=== PATIENT | female | born 1975 | race Caucasian/White ===

== ENCOUNTER 2016-09-28 14:20 | Emergency (ER) | payer MEDICAID ==
[~2016-09-28] VITALS: Ht 170.2 cm; Wt 96.0 kg
[~2016-09-28 14:20] MED LIST: ACET325T14 PO; ACET325T21 PO; ACID1GRA2 PO; AMIT25TA PO; Albuterol Sulfate NPPB; CIPR500T87 PO; DOCU-30 PO; DULO60CA7 PO; ENOX100S5 SQ; ENOX300V SQ; ENOX40SY4 SQ; ERTA1VIA IV; FLUC150T2 PO; FLUO40CA9 PO; GABA100C PO; GABA100C8 PO; GABA600T PO; GABA800T2 PO; GLUC1KIT IM; HEPA500024 IVBOLUS; HYDR-3138 PO; IBUP-1222 PO; IBUP200T48 PO; IBUP800T PO; INSU100C SC; INSU100C5 SQ-INSULIN; INSU100I13 SC; INSU100I13 SQ; INSU100I13 SQ-INSULIN; INSU100I28 SQ-INSULIN; INSU100V13 SC; INSU100V14 SUBD; INSU100V5 SQ-INSULIN; INSU100V8 SQ; LEUP7.5S IM; LISI5TAB7 PO; LORA2TAB99 PO; MAGN400T26 PO; METF850T2 PO; METO5TAB57 PO; METR500T PO; METRO PO; NICO1PAT10 TD; NITR100C6 PO; ONDA-39 IV; ONDA4TAB7 PO; ONDA8TAB12 PO; OXYC10TA6 PO; OXYC1TAB9 PO; OXYC5TAB3 PO; Oxycodone Hcl PO; PANT20TA3 PO; PENT100C2 PO; PHEN-418 PO; PHEN-494 PO; PHEN100T90 PO; PREN1TAB52 PO; PROMETHAZINE; QUET50TA5 PO; SUCR1TAB PO; SUCR1TAB26 PO; TRAM-28 PO; TRAZ300T2 PO; VANC1VIA3 PO; [UNRECOGNIZED DRUG - CODE] IV; [UNRECOGNIZED DRUG - CODE] IV; [UNRECOGNIZED DRUG - CODE] IV; [UNRECOGNIZED DRUG - CODE] PO; [UNRECOGNIZED DRUG - CODE] PO; [UNRECOGNIZED DRUG - OTHER]; novolog insulin pump SQ
[2016-09-28] MEDS ORDERED: SODIUM CHLORIDE 0.9% 1,000ML IVBOLUS ONE (15:30)
[2016-09-28] MEDS ORDERED: SODIUM CHLORIDE FLUSH 10ML SYR IVF ONE (15:30)
[2016-09-28] MEDS ORDERED: ONDANSETRON 2MG/ML, 2ML IVPush ONE (15:30)
[2016-09-28] MEDS ORDERED: KETOROLAC 30 MG/1 ML IM ONE (15:30)
[2016-09-28] MEDS ORDERED: KETOROLAC 30 MG/1 ML ONE (15:36)
[2016-09-28] MEDS ORDERED: ONDANSETRON 2MG/ML, 2ML ONE (15:37)
[2016-09-28 15:49] LABS: ASPARTATE AMINO TRANSFERASE 12 U/L (15-37); BLOOD UREA NITROGEN 13 mg/dL (7-18)
[2016-09-28] MEDS ORDERED: metroNIDAZOLE 500 MG TABLET ONE (16:40)
[2016-09-28] MEDS ORDERED: FLUCONAZOLE 100 MG TABLET PO ONE (17:00)
[2016-09-28] MEDS ORDERED: metroNIDAZOLE 500 MG TABLET PO ONE (17:00)
[2016-09-28 17:10] VITALS: BP 112/73
[2016-09-28] MEDS ORDERED: LISI10TA2 PO (17:20)
[2016-09-28] MEDS ORDERED: DULO60CA55 PO (17:20)
[2016-09-28] MEDS ORDERED: LORA2TAB99 PO (17:21)
[2016-09-28] MEDS ORDERED: ACETAMINOPHEN 325 MG TABLET ONE (17:25)
== END 2016-09-28 18:11 | disposition home or self-care (01) ==
LOC: ED 15:55
DX: N89.8 Other specified noninflammatory disorders of vagina (principal); E11.65 Type 2 diabetes mellitus with hyperglycemia; R30.0 Dysuria; I10 Essential (primary) hypertension; Z79.4 Long term (current) use of insulin; Z90.710 Acquired absence of both cervix and uterus; Z86.718 Personal history of other venous thrombosis and embolism
CPT/HCPCS: 36415; 76830; 80053; 81003; 82962; 84703; 85025; 87210; 87491; 87591; 87808; 96361; 96372; 96374; 99285; J1885; J2405; J7030

== ENCOUNTER 2016-10-07 08:22 | Inpatient (IN) | payer MEDICAID ==
[~2016-10-07] VITALS: Ht 170.2 cm; Wt 100.8 kg
[~2016-10-07 08:22] MED LIST changes: +DULO60CA55 PO; +GABA-826 PO; -GABA100C8 PO; +LISI10TA2 PO
[2016-10-07] MEDS ORDERED: SODIUM CHLORIDE 0.9% 1,000ML IVBOLUS ONE (09:00)
[2016-10-07] MEDS ORDERED: ONDANSETRON 2MG/ML, 2ML IVPush ONE (09:00)
[2016-10-07 09:16] LABS: PH, VENOUS 7.191 pH (7.320-7.420)
[2016-10-07 09:27] LABS: ASPARTATE AMINO TRANSFERASE 9 U/L (15-37); BLOOD UREA NITROGEN 10 mg/dL (7-18)
[2016-10-07] MEDS ORDERED: morphine SULFATE 10 MG/ML, 1ML ONE (09:53)
[2016-10-07] MEDS ORDERED: ONDANSETRON 2MG/ML, 2ML ONE (09:54)
[2016-10-07] MEDS ORDERED: MORPHINE SULFATE 4 MG/ML, 1ML IVPush PRN (10:00)
[2016-10-07] MEDS ORDERED: INSULIN REGULAR 100 UNITS/ML, 3ML VIAL IVPush ONE (10:00)
[2016-10-07] MEDS: SODIUM CHLORIDE 0.9% 1,000 ML IV SCH ×2 (10:25→17:05)
[2016-10-07] MEDS: FAMOTIDINE 20 MG/2 ML IVPush SCH ×2 (10:30→21:14)
[2016-10-07] MEDS ORDERED: ACETAMINOPHEN 325 MG TABLET PO PRN (10:30)
[2016-10-07] MEDS ORDERED: BISACODYL 10 MG SUPP PR PRN (10:30)
[2016-10-07] MEDS ORDERED: ONDANSETRON 2MG/ML, 2ML IVPush PRN (10:30)
[2016-10-07] MEDS ORDERED: POLYETHYLENE GLYCOL 17 GM PACKET PO PRN (10:30)
[2016-10-07] MEDS ORDERED: DOCUSATE 100 MG CAPSULE PO PRN (10:30)
[2016-10-07] MEDS ORDERED: PANTOPRAZOLE 20MG TABLET PO SCH (11:00)
[2016-10-07] MEDS: SUCRALFATE 1 GM TABLET PO SCH ×3 (11:00→21:15)
[2016-10-07] MEDS: METOCLOPRAMIDE 10MG TABLET PO SCH ×2 (11:00→15:58)
[2016-10-07] MEDS ORDERED: LORazepam 1MG TABLET ONE (11:21)
[2016-10-07] MEDS ORDERED: OXYcodone IR 5MG TABLET ONE (11:22)
[2016-10-07] MEDS: OXYcodone IR 5MG TABLET PO PRN ×2 (11:32→19:57)
[2016-10-07] MEDS: REGULAR INSULIN 62.5 UNITS in SODIUM CHLORIDE 0.9% 249.375 ML IV PRN (11:41)
[2016-10-07 14:10] LABS: BLOOD UREA NITROGEN 9 mg/dL (7-18)
[2016-10-07 15:31] VITALS: BP 113/76
[2016-10-07 18:21] LABS: BLOOD UREA NITROGEN 9 mg/dL (7-18)
[2016-10-07 20:56] LABS: BLOOD UREA NITROGEN 10 mg/dL (7-18)
[2016-10-07] MEDS: GABAPENTIN 400 MG CAPSULE PO SCH (21:15)
[2016-10-07] MEDS: LISINOPRIL 10 MG TABLET PO SCH (21:16)
[2016-10-07] MEDS: QUETIAPINE 100MG TABLET PO SCH (21:18)
[2016-10-07] MEDS: AMITRIPTYLINE 25 MG TABLET PO SCH (21:18)
[2016-10-07] MEDS: TRAZODONE 150MG TABLET PO SCH (21:19)
[2016-10-07] MEDS: DULOXETINE 30 MG CAPSULE.DR PO SCH (21:20)
[2016-10-07] MEDS: ENOXAPARIN 100 MG/ML SQ SCH (21:21)
[2016-10-07] MEDS: D5%-0.45% NACL 1,000 ML IV SCH (22:53)
[2016-10-08 01:30] LABS: BLOOD UREA NITROGEN 8 mg/dL (7-18)
[2016-10-08 04:33] LABS: BLOOD UREA NITROGEN 7 mg/dL (7-18)
[2016-10-08] MEDS: REGULAR INSULIN 62.5 UNITS in SODIUM CHLORIDE 0.9% 249.375 ML IV PRN (06:55)
[2016-10-08] MEDS: D5%-0.45% NACL 1,000 ML IV SCH (08:00)
[2016-10-08] MEDS ORDERED: POTASSIUM CHLORIDE 20 MEQ TAB.ER.PRT PO ONE (08:00)
[2016-10-08] MEDS: FAMOTIDINE 20 MG/2 ML IVPush SCH (08:01)
[2016-10-08] MEDS: METOCLOPRAMIDE 10MG TABLET PO SCH ×3 (08:02→17:19)
[2016-10-08] MEDS: SUCRALFATE 1 GM TABLET PO SCH ×4 (08:02→21:54)
[2016-10-08] MEDS: ENOXAPARIN 100 MG/ML SQ SCH ×2 (08:03→21:53)
[2016-10-08] MEDS: GABAPENTIN 400 MG CAPSULE PO SCH ×3 (08:03→21:53)
[2016-10-08] MEDS: OXYcodone IR 5MG TABLET PO PRN ×2 (08:43→21:55)
[2016-10-08 09:03] LABS: BLOOD UREA NITROGEN 6 mg/dL (7-18)
[2016-10-08] MEDS: INSULIN DETEMIR 100 UNITS/ML, PEN SQ-INSULIN SCH ×2 (11:10→21:52)
[2016-10-08] MEDS: INSULIN ASPART 100 UNITS/ML, PEN SQ-INSULIN SCH ×3 (12:31→21:53)
[2016-10-08 18:01] VITALS: BP 128/89
[2016-10-08 20:29] VITALS: BP 131/86
[2016-10-08] MEDS: QUETIAPINE 100MG TABLET PO SCH (21:53)
[2016-10-08] MEDS: TRAZODONE 150MG TABLET PO SCH (21:54)
[2016-10-08] MEDS: DULOXETINE 30 MG CAPSULE.DR PO SCH (21:54)
[2016-10-08] MEDS: LISINOPRIL 10 MG TABLET PO SCH (21:54)
[2016-10-08] MEDS: AMITRIPTYLINE 25 MG TABLET PO SCH (21:54)
[2016-10-09 03:27] VITALS: BP 105/72
[2016-10-09 06:15] LABS: BLOOD UREA NITROGEN 9 mg/dL (7-18)
[2016-10-09 06:55] VITALS: BP 111/74
[2016-10-09] MEDS: INSULIN ASPART 100 UNITS/ML, PEN SQ-INSULIN SCH ×4 (08:42→21:20)
[2016-10-09] MEDS: GABAPENTIN 400 MG CAPSULE PO SCH ×3 (08:43→21:18)
[2016-10-09] MEDS: INSULIN DETEMIR 100 UNITS/ML, PEN SQ-INSULIN SCH ×2 (08:43→21:19)
[2016-10-09] MEDS: SUCRALFATE 1 GM TABLET PO SCH ×4 (08:43→21:19)
[2016-10-09] MEDS: ENOXAPARIN 100 MG/ML SQ SCH ×2 (08:43→21:18)
[2016-10-09] MEDS: OXYcodone IR 5MG TABLET PO PRN ×3 (08:43→21:18)
[2016-10-09] MEDS: METOCLOPRAMIDE 10MG TABLET PO SCH ×3 (08:44→15:27)
[2016-10-09] MEDS ORDERED: LORazepam 1MG TABLET ONE (11:23)
[2016-10-09 13:18] VITALS: BP 116/82
[2016-10-09 18:20] VITALS: BP 138/98
[2016-10-09] MEDS: QUETIAPINE 100MG TABLET PO SCH (21:18)
[2016-10-09] MEDS: AMITRIPTYLINE 25 MG TABLET PO SCH (21:18)
[2016-10-09] MEDS: LISINOPRIL 10 MG TABLET PO SCH (21:18)
[2016-10-09] MEDS: TRAZODONE 150MG TABLET PO SCH (21:19)
[2016-10-09] MEDS: DULOXETINE 30 MG CAPSULE.DR PO SCH (21:19)
[2016-10-10 01:00] VITALS: BP 107/75
[2016-10-10 07:43] VITALS: BP 112/74
[2016-10-10] MEDS: INSULIN ASPART 100 UNITS/ML, PEN SQ-INSULIN SCH ×4 (07:57→22:27)
[2016-10-10] MEDS: SUCRALFATE 1 GM TABLET PO SCH ×4 (07:57→22:25)
[2016-10-10] MEDS: ENOXAPARIN 100 MG/ML SQ SCH ×2 (09:37→22:25)
[2016-10-10] MEDS: METOCLOPRAMIDE 10MG TABLET PO SCH ×3 (09:37→16:46)
[2016-10-10] MEDS: INSULIN DETEMIR 100 UNITS/ML, PEN SQ-INSULIN SCH ×3 (09:37→22:27)
[2016-10-10] MEDS: GABAPENTIN 400 MG CAPSULE PO SCH ×3 (09:37→22:25)
[2016-10-10] MEDS: OXYcodone IR 5MG TABLET PO PRN ×2 (09:41→22:26)
[2016-10-10] MEDS: FLUCONAZOLE 200 MG TABLET PO SCH (12:12)
[2016-10-10 14:24] VITALS: BP 120/85
[2016-10-10 18:37] VITALS: BP 116/83
[2016-10-10] MEDS: DULOXETINE 30 MG CAPSULE.DR PO SCH (22:25)
[2016-10-10] MEDS: AMITRIPTYLINE 25 MG TABLET PO SCH (22:25)
[2016-10-10] MEDS: QUETIAPINE 100MG TABLET PO SCH (22:26)
[2016-10-10] MEDS: TRAZODONE 150MG TABLET PO SCH (22:26)
[2016-10-10] MEDS: LISINOPRIL 10 MG TABLET PO SCH (22:26)
[2016-10-11 00:52] VITALS: BP 120/83
[2016-10-11] MEDS: INSULIN ASPART 100 UNITS/ML, PEN SQ-INSULIN SCH ×2 (07:00→11:28)
[2016-10-11 07:27] VITALS: BP 125/85
[2016-10-11] MEDS: SUCRALFATE 1 GM TABLET PO SCH ×2 (07:50→11:28)
[2016-10-11] MEDS: METOCLOPRAMIDE 10MG TABLET PO SCH ×2 (07:51→11:28)
[2016-10-11] MEDS: FLUCONAZOLE 200 MG TABLET PO SCH (09:51)
[2016-10-11] MEDS: GABAPENTIN 400 MG CAPSULE PO SCH (09:52)
[2016-10-11] MEDS: ENOXAPARIN 100 MG/ML SQ SCH (09:53)
[2016-10-11] MEDS ORDERED: FLUC200T PO (10:06)
[2016-10-11] MEDS: INSULIN DETEMIR 100 UNITS/ML, PEN SQ-INSULIN SCH (11:29)
== END 2016-10-11 11:57 | disposition home or self-care (01) | DRG 639 ==
LOC: ED 09:26 → EDIP 09:50 → ICU 14:26 → 3NE 10-08 17:41 → DCLOUNGE 10-11 11:35
PROVIDERS: ADMIT Hospitalist; ATTEND Hospitalist
DX: E10.10 Type 1 diabetes mellitus with ketoacidosis without coma (principal); E10.40 Type 1 diabetes mellitus with diabetic neuropathy, unspecified; G89.29 Other chronic pain; F41.1 Generalized anxiety disorder; F32.9 Major depressive disorder, single episode, unspecified; E10.43 Type 1 diabetes mellitus with diabetic autonomic (poly)neuropathy; K31.84 Gastroparesis; B37.3 Candidiasis of vulva and vagina; F43.10 Post-traumatic stress disorder, unspecified; F12.90 Cannabis use, unspecified, uncomplicated; Z90.710 Acquired absence of both cervix and uterus; Z90.49 Acquired absence of other specified parts of digestive tract; Z87.891 Personal history of nicotine dependence; Z88.1 Allergy status to other antibiotic agents; Z88.0 Allergy status to penicillin; Z88.2 Allergy status to sulfonamides; Z88.8 Allergy status to other drugs, medicaments and biological substances; Z86.711 Personal history of pulmonary embolism; Z86.718 Personal history of other venous thrombosis and embolism; Z82.5 Family history of asthma and other chronic lower respiratory diseases; Z82.49 Family history of ischemic heart disease and other diseases of the circulatory system; Z83.3 Family history of diabetes mellitus; Z79.4 Long term (current) use of insulin; Z79.891 Long term (current) use of opiate analgesic; Z79.01 Long term (current) use of anticoagulants
CPT/HCPCS: 36415; 71010; 80048; 80053; 81003; 82010; 82803; 82962; 83036; 83735; 84703; 85025; 87081; 93005; 99285; J1650; J1815; J2405; J7030; J7050; S0028

== ENCOUNTER 2016-10-18 03:57 | Inpatient (IN) | payer MEDICAID ==
[~2016-10-18] VITALS: Ht 170.2 cm; Wt 92.1 kg
[~2016-10-18 03:57] MED LIST changes: +FLUC200T PO
[2016-10-18] MEDS ORDERED: ONDANSETRON 2MG/ML, 2ML IVPush ONE (04:30)
[2016-10-18] MEDS: SODIUM CHLORIDE 0.9% 1,000ML IVBOLUS ONE ×2 (04:30→04:36)
[2016-10-18] MEDS ORDERED: REGULAR INSULIN 62.5 UNITS in SODIUM CHLORIDE 0.9% 249.375 ML IV PRN ×2 (04:31→08:00)
[2016-10-18] MEDS ORDERED: PROMETHAZINE 25 MG/ML, 1ML ONE (04:34)
[2016-10-18] MEDS ORDERED: ONDANSETRON 2MG/ML, 2ML ONE (04:42)
[2016-10-18] MEDS ORDERED: PROMETHAZINE 25 MG/ML, 1ML IM ONE (05:00)
[2016-10-18] MEDS ORDERED: SODIUM CHLORIDE 0.9% 1,000ML IVBOLUS ONE (05:00)
[2016-10-18 05:50] LABS: PATH.CAST-FLAG NOT PRESENT; SPERM-FLAG NOT PRESENT; SRC-FLAG NOT PRESENT; XTAL-FLAG NOT PRESENT; YLC-FLAG NOT PRESENT
[2016-10-18] MEDS ORDERED: FAMOTIDINE 20 MG/2 ML ONE (05:55)
[2016-10-18] MEDS ORDERED: MORPHINE SULFATE 4 MG/ML, 1ML ONE (05:55)
[2016-10-18] MEDS ORDERED: FAMOTIDINE 20 MG/2 ML IVPush ONE (06:00)
[2016-10-18] MEDS ORDERED: MORPHINE SULFATE 4 MG/ML, 1ML IVPush ONE (06:00)
[2016-10-18 06:03] LABS: ABG COLLECTION SITE NOT DOCUMENTED
[2016-10-18 06:09] LABS: BLOOD UREA NITROGEN 14 mg/dL (7-18)
[2016-10-18 06:13] LABS: ASPARTATE AMINO TRANSFERASE 11 U/L (15-37)
[2016-10-18 06:25] LABS: IS PT STATUS REG ER OR PRE ER? YES
[2016-10-18] MEDS ORDERED: PIPERACILLIN/TAZO/PMX 3.375GM 50 ML IVPB ONE (06:30)
[2016-10-18 06:37] LABS: DIFF TOTAL CELLS COUNTED 100 CELL DIFF
[2016-10-18 06:40] LABS: VERIFY COUNTS? YES
[2016-10-18] MEDS ORDERED: PIPERACILLIN/TAZO/PMX 3.375GM 50 ML ONE (07:18)
[2016-10-18] MEDS ORDERED: SODIUM CHLORIDE 0.9% 1,000 ML IV SCH (07:58)
[2016-10-18] MEDS ORDERED: BISACODYL 10 MG SUPP PR PRN (08:00)
[2016-10-18] MEDS ORDERED: [UNRECOGNIZED DRUG - REMARK] MC SCH (08:30)
[2016-10-18] MEDS: FAMOTIDINE 20 MG TABLET PO SCH ×2 (09:00→20:11)
[2016-10-18] MEDS: GABAPENTIN 400 MG CAPSULE PO SCH ×3 (09:00→20:11)
[2016-10-18] MEDS: OXYcodone IR 5MG TABLET PO PRN (09:10)
[2016-10-18] MEDS ORDERED: MAGNESIUM SULFATE PMX 4GM/100M 100 ML IV ONE (09:30)
[2016-10-18] MEDS ORDERED: D5%-0.45% NACL 1,000 ML IV SCH (10:00)
[2016-10-18 10:12] LABS: BLOOD UREA NITROGEN 13 mg/dL (7-18)
[2016-10-18] MEDS: METOCLOPRAMIDE 10MG TABLET PO SCH ×2 (11:27→16:23)
[2016-10-18] MEDS: ENOXAPARIN 100 MG/ML SQ SCH ×2 (11:28→20:10)
[2016-10-18] MEDS: FLUCONAZOLE 200 MG TABLET PO SCH (11:33)
[2016-10-18] MEDS: ONDANSETRON 2MG/ML, 2ML IVPush PRN (13:10)
[2016-10-18 13:30] LABS: BLOOD UREA NITROGEN 9 mg/dL (7-18)
[2016-10-18] MEDS: PIPERACILLIN/TAZO/PMX 3.375GM 50 ML IV SCH ×2 (14:10→19:17)
[2016-10-18 17:12] LABS: BLOOD UREA NITROGEN 6 mg/dL (7-18)
[2016-10-18] MEDS: D5%-0.45% NACL 1,000 ML IV SCH (18:14)
[2016-10-18] MEDS ORDERED: POTASSIUM CHLORIDE 20 MEQ TAB.ER.PRT PO ONE (18:30)
[2016-10-18] MEDS: AMITRIPTYLINE 25 MG TABLET PO SCH (20:10)
[2016-10-18] MEDS: QUETIAPINE 25MG TABLET PO SCH (20:11)
[2016-10-18] MEDS: TRAZODONE 150MG TABLET PO SCH ×2 (20:11→21:00)
[2016-10-18] MEDS: DULOXETINE 30 MG CAPSULE.DR PO SCH (20:12)
[2016-10-18 21:14] LABS: BLOOD UREA NITROGEN 6 mg/dL (7-18)
[2016-10-19] MEDS: PIPERACILLIN/TAZO/PMX 3.375GM 50 ML IV SCH ×3 (01:09→12:14)
[2016-10-19] MEDS: D5%-0.45% NACL 1,000 ML IV SCH (01:10)
[2016-10-19 01:13] LABS: BLOOD UREA NITROGEN 4 mg/dL (7-18)
[2016-10-19] MEDS ORDERED: POTASSIUM CHLORIDE 20 MEQ PACKET PO ONE (01:30)
[2016-10-19] MEDS ORDERED: INSULIN DETEMIR 100 UNITS/ML, PEN ONE (01:45)
[2016-10-19] MEDS: SODIUM CHLORIDE 0.9% 1,000 ML IV SCH ×2 (01:51→12:14)
[2016-10-19] MEDS ORDERED: INSULIN DETEMIR 100 UNITS/ML, PEN SQ-INSULIN ONE (02:00)
[2016-10-19 04:48] LABS: BLOOD UREA NITROGEN 4 mg/dL (7-18)
[2016-10-19 04:51] LABS: ASPARTATE AMINO TRANSFERASE 87 U/L (15-37)
[2016-10-19] MEDS: METOCLOPRAMIDE 10MG TABLET PO SCH ×3 (07:55→17:26)
[2016-10-19] MEDS: INSULIN REGULAR 100 UNITS/ML, 3ML VIAL SQ-INSULIN SCH ×4 (07:56→22:06)
[2016-10-19] MEDS: FLUCONAZOLE 200 MG TABLET PO SCH (08:07)
[2016-10-19] MEDS: OXYcodone IR 5MG TABLET PO PRN ×3 (08:07→22:06)
[2016-10-19] MEDS: ENOXAPARIN 100 MG/ML SQ SCH ×2 (08:07→22:06)
[2016-10-19] MEDS: GABAPENTIN 400 MG CAPSULE PO SCH ×3 (08:07→22:06)
[2016-10-19] MEDS: INSULIN DETEMIR 100 UNITS/ML, PEN SQ-INSULIN SCH ×2 (10:25→22:05)
[2016-10-19] MEDS: ONDANSETRON 2MG/ML, 2ML IVPush PRN ×2 (12:14→22:14)
[2016-10-19 14:05] VITALS: BP 128/85
[2016-10-19 19:37] VITALS: BP 140/66
[2016-10-19] MEDS: QUETIAPINE 25MG TABLET PO SCH (22:06)
[2016-10-19] MEDS: AMITRIPTYLINE 25 MG TABLET PO SCH (22:06)
[2016-10-19] MEDS: TRAZODONE 150MG TABLET PO SCH (22:07)
[2016-10-19] MEDS: DULOXETINE 30 MG CAPSULE.DR PO SCH (22:07)
[2016-10-20] MEDS: SODIUM CHLORIDE 0.9% 1,000 ML IV SCH ×3 (00:43→21:24)
[2016-10-20 04:36] VITALS: BP 119/66
[2016-10-20 05:16] LABS: BLOOD UREA NITROGEN 6 mg/dL (7-18)
[2016-10-20 07:18] VITALS: BP 123/81
[2016-10-20] MEDS ORDERED: POTASSIUM CHLORIDE 20 MEQ TAB.ER.PRT PO ONE (07:30)
[2016-10-20] MEDS: INSULIN REGULAR 100 UNITS/ML, 3ML VIAL SQ-INSULIN SCH ×4 (07:50→21:26)
[2016-10-20] MEDS: METOCLOPRAMIDE 10MG TABLET PO SCH ×3 (07:52→15:55)
[2016-10-20] MEDS: GABAPENTIN 400 MG CAPSULE PO SCH ×3 (09:35→21:25)
[2016-10-20] MEDS: FLUCONAZOLE 200 MG TABLET PO SCH (09:35)
[2016-10-20] MEDS: OXYcodone IR 5MG TABLET PO PRN ×2 (09:36→21:27)
[2016-10-20] MEDS: ENOXAPARIN 100 MG/ML SQ SCH ×2 (09:36→21:25)
[2016-10-20] MEDS: INSULIN DETEMIR 100 UNITS/ML, PEN SQ-INSULIN SCH ×2 (09:36→21:26)
[2016-10-20] MEDS: DOCUSATE 100 MG CAPSULE PO PRN (09:37)
[2016-10-20] MEDS ORDERED: [UNRECOGNIZED DRUG - REMARK] MC ONE (10:30)
[2016-10-20 12:57] VITALS: BP 124/84
[2016-10-20 20:59] VITALS: BP 121/83
[2016-10-20] MEDS: TRAZODONE 150MG TABLET PO SCH (21:25)
[2016-10-20] MEDS: DULOXETINE 30 MG CAPSULE.DR PO SCH (21:25)
[2016-10-20] MEDS: QUETIAPINE 25MG TABLET PO SCH (21:25)
[2016-10-20] MEDS: AMITRIPTYLINE 25 MG TABLET PO SCH (21:25)
[2016-10-21] MEDS: SODIUM CHLORIDE 0.9% 1,000 ML IV SCH ×2 (06:26→17:04)
[2016-10-21 07:22] VITALS: BP 131/88
[2016-10-21] MEDS: METOCLOPRAMIDE 10MG TABLET PO SCH ×3 (08:11→16:00)
[2016-10-21] MEDS: INSULIN REGULAR 100 UNITS/ML, 3ML VIAL SQ-INSULIN SCH ×4 (08:11→21:44)
[2016-10-21] MEDS: INSULIN DETEMIR 100 UNITS/ML, PEN SQ-INSULIN SCH ×2 (08:12→21:45)
[2016-10-21] MEDS: GABAPENTIN 400 MG CAPSULE PO SCH ×3 (08:12→21:43)
[2016-10-21] MEDS: FLUCONAZOLE 200 MG TABLET PO SCH (08:12)
[2016-10-21] MEDS: ENOXAPARIN 100 MG/ML SQ SCH ×2 (08:12→21:43)
[2016-10-21] MEDS: OXYcodone IR 5MG TABLET PO PRN ×2 (08:13→21:45)
[2016-10-21] MEDS: POLYETHYLENE GLYCOL 17 GM PACKET PO PRN (08:21)
[2016-10-21 10:36] LABS: BLOOD UREA NITROGEN 6 mg/dL (7-18)
[2016-10-21 12:35] VITALS: BP 137/96
[2016-10-21] MEDS: ONDANSETRON 2MG/ML, 2ML IVPush PRN (14:46)
[2016-10-21 19:27] VITALS: BP 123/84
[2016-10-21] MEDS: DULOXETINE 30 MG CAPSULE.DR PO SCH (21:42)
[2016-10-21] MEDS: TRAZODONE 150MG TABLET PO SCH (21:42)
[2016-10-21] MEDS: AMITRIPTYLINE 25 MG TABLET PO SCH (21:42)
[2016-10-21] MEDS: QUETIAPINE 25MG TABLET PO SCH (21:43)
[2016-10-22 01:54] VITALS: BP 126/91
[2016-10-22] MEDS ORDERED: LORazepam 1MG TABLET ONE (02:13)
[2016-10-22] MEDS: SODIUM CHLORIDE 0.9% 1,000 ML IV SCH ×2 (02:14→12:18)
[2016-10-22] MEDS: INSULIN REGULAR 100 UNITS/ML, 3ML VIAL SQ-INSULIN SCH ×4 (07:00→22:20)
[2016-10-22 07:15] VITALS: BP 120/86
[2016-10-22] MEDS: INSULIN DETEMIR 100 UNITS/ML, PEN SQ-INSULIN SCH (08:40)
[2016-10-22] MEDS: ENOXAPARIN 100 MG/ML SQ SCH ×2 (08:40→21:15)
[2016-10-22] MEDS: GABAPENTIN 400 MG CAPSULE PO SCH ×3 (08:40→21:13)
[2016-10-22] MEDS: METOCLOPRAMIDE 10MG TABLET PO SCH ×4 (08:41→21:15)
[2016-10-22] MEDS: FLUCONAZOLE 200 MG TABLET PO SCH (08:41)
[2016-10-22] MEDS: OXYcodone IR 5MG TABLET PO PRN ×3 (09:28→22:19)
[2016-10-22] MEDS: DOCUSATE 100 MG CAPSULE PO PRN (09:28)
[2016-10-22] MEDS: POLYETHYLENE GLYCOL 17 GM PACKET PO PRN (09:28)
[2016-10-22 14:50] VITALS: BP 120/84
[2016-10-22] MEDS ORDERED: INSULIN DETEMIR 100 UNITS/ML, PEN SQ-INSULIN ONE (17:00)
[2016-10-22] MEDS ORDERED: LORazepam 0.5MG TABLET PO PRN (17:00)
[2016-10-22 19:30] VITALS: BP 130/86
[2016-10-22] MEDS ORDERED: INSULIN DETEMIR 100 UNITS/ML, PEN SQ-INSULIN SCH ×2 (21:00)
[2016-10-22] MEDS: TRAZODONE 150MG TABLET PO SCH (21:14)
[2016-10-22] MEDS: QUETIAPINE 25MG TABLET PO SCH (21:14)
[2016-10-22] MEDS: DULOXETINE 30 MG CAPSULE.DR PO SCH (21:14)
[2016-10-22] MEDS: SUCRALFATE 1 GM TABLET PO SCH (21:14)
[2016-10-22] MEDS: AMITRIPTYLINE 25 MG TABLET PO SCH (21:14)
[2016-10-22] MEDS: LISINOPRIL 10 MG TABLET PO SCH (21:14)
[2016-10-23 01:13] VITALS: BP 125/85
[2016-10-23 05:53] LABS: ASPARTATE AMINO TRANSFERASE 18 U/L (15-37); BLOOD UREA NITROGEN 12 mg/dL (7-18)
[2016-10-23] MEDS: INSULIN REGULAR 100 UNITS/ML, 3ML VIAL SQ-INSULIN SCH ×4 (07:00→22:48)
[2016-10-23] MEDS: METOCLOPRAMIDE 10MG TABLET PO SCH ×5 (07:00→21:56)
[2016-10-23 07:18] VITALS: BP 127/87
[2016-10-23] MEDS ORDERED: INSULIN DETEMIR 100 UNITS/ML, PEN SQ-INSULIN SCH ×2 (08:00→21:00)
[2016-10-23] MEDS: ENOXAPARIN 100 MG/ML SQ SCH ×2 (08:19→21:54)
[2016-10-23] MEDS: SUCRALFATE 1 GM TABLET PO SCH ×4 (08:19→21:56)
[2016-10-23] MEDS: OXYcodone IR 5MG TABLET PO PRN ×2 (08:19→17:03)
[2016-10-23] MEDS: GABAPENTIN 400 MG CAPSULE PO SCH ×3 (08:19→21:56)
[2016-10-23] MEDS: LORazepam 1MG TABLET PO PRN ×2 (10:51→18:42)
[2016-10-23 12:17] VITALS: BP 122/85
[2016-10-23] MEDS ORDERED: INSULIN DETEMIR 100 UNITS/ML, PEN SQ-INSULIN ONE (13:00)
[2016-10-23 19:21] VITALS: BP 115/81
[2016-10-23] MEDS: QUETIAPINE 25MG TABLET PO SCH (21:55)
[2016-10-23] MEDS: LISINOPRIL 10 MG TABLET PO SCH (21:55)
[2016-10-23] MEDS: TRAZODONE 150MG TABLET PO SCH (21:55)
[2016-10-23] MEDS: DULOXETINE 30 MG CAPSULE.DR PO SCH (21:56)
[2016-10-23] MEDS: AMITRIPTYLINE 25 MG TABLET PO SCH (21:56)
[2016-10-24 02:04] VITALS: BP 115/77
[2016-10-24 06:16] LABS: BLOOD UREA NITROGEN 16 mg/dL (7-18)
[2016-10-24] MEDS ORDERED: INSULIN DETEMIR 100 UNITS/ML, PEN SQ-INSULIN SCH (08:00)
[2016-10-24] MEDS: INSULIN REGULAR 100 UNITS/ML, 3ML VIAL SQ-INSULIN SCH ×3 (08:22→16:14)
[2016-10-24] MEDS: GABAPENTIN 400 MG CAPSULE PO SCH ×2 (08:22→16:12)
[2016-10-24] MEDS: ENOXAPARIN 100 MG/ML SQ SCH (08:22)
[2016-10-24] MEDS: OXYcodone IR 5MG TABLET PO PRN (08:23)
[2016-10-24] MEDS: METOCLOPRAMIDE 10MG TABLET PO SCH ×3 (08:23→16:12)
[2016-10-24] MEDS: SUCRALFATE 1 GM TABLET PO SCH ×3 (08:23→16:12)
[2016-10-24 08:40] VITALS: BP 132/87
[2016-10-24] MEDS: LORazepam 1MG TABLET PO PRN (11:08)
[2016-10-24] MEDS ORDERED: LISI5TAB7 PO (12:55)
[2016-10-24] MEDS ORDERED: METO10TA82 PO (12:55)
[2016-10-24] MEDS ORDERED: PENT100C2 PO (12:56)
[2016-10-24] MEDS ORDERED: GABA600T2 PO (12:58)
[2016-10-24] MEDS ORDERED: PANT20TA3 PO (12:59)
[2016-10-24] MEDS ORDERED: QUET50TA5 PO (12:59)
[2016-10-24 13:58] VITALS: BP 124/86
[2016-10-24] MEDS ORDERED: GABA-827 PO (17:34)
[2016-10-24] MEDS ORDERED: DULO30CA2 PO (17:34)
[2016-10-24] MEDS ORDERED: LISI-167 PO (17:34)
== END 2016-10-24 18:45 | disposition home or self-care (01) | DRG 638 ==
LOC: ED 06:08 → EDIP 06:09 → ED 06:17 → CCU 07:53 → 3NE 10-19 10:44
PROVIDERS: ADMIT Hospitalist; ATTEND Hospitalist
DX: E10.10 Type 1 diabetes mellitus with ketoacidosis without coma (principal); E87.1 Hypo-osmolality and hyponatremia; B37.49 Other urogenital candidiasis; I10 Essential (primary) hypertension; F41.9 Anxiety disorder, unspecified; F32.9 Major depressive disorder, single episode, unspecified; F43.10 Post-traumatic stress disorder, unspecified; E10.43 Type 1 diabetes mellitus with diabetic autonomic (poly)neuropathy; K31.84 Gastroparesis; E83.42 Hypomagnesemia; E86.0 Dehydration; G89.29 Other chronic pain; K21.9 Gastro-esophageal reflux disease without esophagitis; Z87.891 Personal history of nicotine dependence; Z90.710 Acquired absence of both cervix and uterus; Z88.1 Allergy status to other antibiotic agents; Z88.2 Allergy status to sulfonamides; Z88.8 Allergy status to other drugs, medicaments and biological substances; Z86.718 Personal history of other venous thrombosis and embolism; Z86.711 Personal history of pulmonary embolism; Z79.891 Long term (current) use of opiate analgesic
CPT/HCPCS: 36415; 36600; 71010; 80048; 80053; 81001; 82010; 82040; 82803; 82962; 83690; 83735; 84100; 84484; 85025; 87040; 87081; 93005; 96365; 96366; 96372; 96375; J1650; J2405; J2543; J2550; J3475; J7030; S0028

== ENCOUNTER 2016-11-21 12:13 | Emergency (ER) | payer MEDICAID ==
[~2016-11-21] VITALS: Ht 170.2 cm; Wt 96.5 kg
[~2016-11-21 12:13] MED LIST changes: +DULO30CA2 PO; +GABA-827 PO; +GABA600T2 PO; +LISI-167 PO; +METO10TA82 PO; -[UNRECOGNIZED DRUG - OTHER]; +[UNRECOGNIZED DRUG - OTHER] SQ
[2016-11-21] MEDS ORDERED: SODIUM CHLORIDE 0.9% 1,000ML IVBOLUS ONE ×2 (12:30→13:30)
[2016-11-21 12:59] LABS: PH, VENOUS 7.417 pH (7.320-7.420)
[2016-11-21 13:11] LABS: ASPARTATE AMINO TRANSFERASE 7 U/L (15-37); BLOOD UREA NITROGEN 14 mg/dL (7-18)
[2016-11-21] MEDS ORDERED: AMIT25TA PO (13:16)
[2016-11-21] MEDS ORDERED: DULO60CA7 PO (13:16)
[2016-11-21] MEDS ORDERED: MORPHINE SULFATE 4 MG/ML, 1ML IVPush PRN (13:30)
[2016-11-21] MEDS ORDERED: ONDANSETRON 2MG/ML, 2ML IVPush ONE (13:30)
[2016-11-21] MEDS ORDERED: ONDANSETRON 2MG/ML, 2ML ONE (13:45)
[2016-11-21] MEDS ORDERED: MORPHINE SULFATE 4 MG/ML, 1ML ONE (13:45)
[2016-11-21] MEDS ORDERED: ONDANSETRON ODT 8 MG ONE (14:51)
[2016-11-21] MEDS ORDERED: HYDROmorphone 1 MG/ML, 1ML ONE (14:51)
[2016-11-21] MEDS ORDERED: HYDROmorphone 1 MG/ML, 1ML IM ONE (15:00)
[2016-11-21] MEDS ORDERED: ONDANSETRON ODT 4 MG PO PRN (15:00)
[2016-11-21 15:10] VITALS: BP 129/83
== END 2016-11-21 15:14 | disposition home or self-care (01) ==
LOC: ED 13:29
DX: E10.65 Type 1 diabetes mellitus with hyperglycemia (principal); K29.00 Acute gastritis without bleeding; G89.29 Other chronic pain; Z87.891 Personal history of nicotine dependence
CPT/HCPCS: 36415; 80053; 81003; 82010; 82803; 82962; 83690; 85025; 96372; 99284; J1170; Q0162

== ENCOUNTER 2016-11-29 05:11 | Inpatient (IN) | payer BC, MEDICAID ==
[~2016-11-29] VITALS: Ht 170.2 cm; Wt 91.3 kg
[2016-11-29] MEDS ORDERED: SODIUM CHLORIDE 0.9% 1,000 ML IV ONE (05:32)
[2016-11-29] MEDS ORDERED: ONDANSETRON 2MG/ML, 2ML ONE ×2 (05:34→07:43)
[2016-11-29] MEDS ORDERED: FAMOTIDINE 20 MG/2 ML ONE (05:35)
[2016-11-29] MEDS ORDERED: METOCLOPRAMIDE 5 MG/ML, 2ML ONE (05:41)
[2016-11-29] MEDS ORDERED: INSULIN SINGLE DOSE, ER SQ-INSULIN ONE (05:41)
[2016-11-29] MEDS ORDERED: SODIUM CHLORIDE FLUSH 10ML SYR IVF ONE (06:00)
[2016-11-29] MEDS ORDERED: INSULIN REGULAR 100 UNITS/ML, 3ML VIAL IVPush ONE (06:00)
[2016-11-29] MEDS ORDERED: SODIUM CHLORIDE 0.9% 1,000ML IVBOLUS ONE (06:00)
[2016-11-29] MEDS ORDERED: ONDANSETRON 2MG/ML, 2ML IM ONE (06:00)
[2016-11-29] MEDS ORDERED: METOCLOPRAMIDE 5 MG/ML, 2ML IVPush ONE (06:00)
[2016-11-29] MEDS ORDERED: FAMOTIDINE 20 MG/2 ML IVPush ONE (06:00)
[2016-11-29 06:05] LABS: HEMATOCRIT 50.7 % (34.6-47.8); HEMOGLOBIN 16.7 g/dL (11.7-16.4); WHITE BLOOD COUNT 17.2 x10^3/uL (3.4-10)
[2016-11-29 06:11] LABS: PH, VENOUS 7.069 pH (7.320-7.420)
[2016-11-29 06:17] LABS: ASPARTATE AMINO TRANSFERASE 7 U/L (15-37); BLOOD UREA NITROGEN 17 mg/dL (7-18)
[2016-11-29] MEDS ORDERED: INSU100C SQ-INSULIN (06:37)
[2016-11-29 06:42] LABS: PATH.CAST-FLAG NOT PRESENT; SPERM-FLAG NOT PRESENT; SRC-FLAG NOT PRESENT; XTAL-FLAG NOT PRESENT; YLC-FLAG NOT PRESENT
[2016-11-29] MEDS ORDERED: ONDANSETRON 2MG/ML, 2ML IVPush ONE (07:30)
[2016-11-29] MEDS ORDERED: PROMETHAZINE 25 MG/ML, 1ML IM PRN (08:00)
[2016-11-29] MEDS ORDERED: PROMETHAZINE 25 MG/ML, 1ML IM ONE (08:00)
[2016-11-29] MEDS ORDERED: PROMETHAZINE 25 MG/ML, 1ML ONE (08:03)
[2016-11-29] MEDS: REGULAR INSULIN 62.5 UNITS in SODIUM CHLORIDE 0.9% 249.375 ML IV PRN ×2 (09:12→17:55)
[2016-11-29] MEDS ORDERED: LORazepam 1MG TABLET ONE (09:17)
[2016-11-29] MEDS ORDERED: PANTOPRAZOLE 20MG TABLET ONE (09:34)
[2016-11-29] MEDS: GABAPENTIN 400 MG CAPSULE PO SCH ×3 (10:19→22:19)
[2016-11-29] MEDS: PANTOPRAZOLE 20MG TABLET PO SCH (10:19)
[2016-11-29] MEDS: ENOXAPARIN 100 MG/ML SQ SCH ×2 (10:20→22:18)
[2016-11-29 10:26] LABS: BLOOD UREA NITROGEN 18 mg/dL (7-18)
[2016-11-29 11:27] VITALS: BP 180/90
[2016-11-29] MEDS: SODIUM CHLORIDE 0.9% 1,000 ML IV SCH ×3 (12:01→21:19)
[2016-11-29] MEDS: SUCRALFATE 1 GM TABLET PO SCH ×3 (12:01→21:16)
[2016-11-29 14:38] LABS: BLOOD UREA NITROGEN 15 mg/dL (7-18)
[2016-11-29] MEDS: D5%-0.45% NACL 1,000 ML IV SCH (17:04)
[2016-11-29 18:15] LABS: BLOOD UREA NITROGEN 12 mg/dL (7-18)
[2016-11-29 18:46] LABS: IS PT STATUS REG ER OR PRE ER? NO
[2016-11-29] MEDS: DULOXETINE 30 MG CAPSULE.DR PO SCH (21:15)
[2016-11-29] MEDS: LISINOPRIL 10 MG TABLET PO SCH (21:16)
[2016-11-29 22:13] LABS: BLOOD UREA NITROGEN 10 mg/dL (7-18)
[2016-11-29 22:21] LABS: IS PT STATUS REG ER OR PRE ER? NO
[2016-11-30] MEDS: D5%-0.45% NACL 1,000 ML IV SCH ×2 (01:20→08:40)
[2016-11-30] MEDS: OXYcodone IR 5MG TABLET PO PRN ×2 (01:20→14:49)
[2016-11-30 02:32] LABS: BLOOD UREA NITROGEN 9 mg/dL (7-18)
[2016-11-30] MEDS: SODIUM CHLORIDE 0.9% 1,000 ML IV SCH ×2 (03:59→08:40)
[2016-11-30 04:00] VITALS: BP 131/82
[2016-11-30 06:13] LABS: HEMATOCRIT 41.6 % (34.6-47.8); HEMOGLOBIN 14.1 g/dL (11.7-16.4); WHITE BLOOD COUNT 12.2 x10^3/uL (3.4-10)
[2016-11-30 06:23] LABS: BLOOD UREA NITROGEN 8 mg/dL (7-18)
[2016-11-30] MEDS ORDERED: POTASSIUM CHLORIDE 20 MEQ TAB.ER.PRT PO ONE (08:00)
[2016-11-30] MEDS: GABAPENTIN 400 MG CAPSULE PO SCH ×3 (08:40→20:54)
[2016-11-30] MEDS: ENOXAPARIN 100 MG/ML SQ SCH ×2 (08:40→20:56)
[2016-11-30] MEDS: SUCRALFATE 1 GM TABLET PO SCH ×4 (08:40→20:54)
[2016-11-30] MEDS: PANTOPRAZOLE 20MG TABLET PO SCH (08:40)
[2016-11-30] MEDS: REGULAR INSULIN 62.5 UNITS in SODIUM CHLORIDE 0.9% 249.375 ML IV PRN (11:15)
[2016-11-30 11:54] LABS: BLOOD UREA NITROGEN 7 mg/dL (7-18)
[2016-11-30] MEDS: INSULIN DETEMIR 100 UNITS/ML, PEN SQ-INSULIN SCH (13:22)
[2016-11-30] MEDS: TEMPLATE NON-FORMULARY MED. (Pentosan Polysulfate Sodium (Elmiron) 100 MG) PO SCH ×2 (16:00→20:55)
[2016-11-30] MEDS: METOCLOPRAMIDE 10MG TABLET PO SCH (16:53)
[2016-11-30] MEDS: INSULIN ASPART 100 UNITS/ML, PEN SQ-INSULIN SCH ×2 (18:08→21:26)
[2016-11-30 18:57] VITALS: BP 132/88
[2016-11-30] MEDS: LISINOPRIL 10 MG TABLET PO SCH (20:52)
[2016-11-30] MEDS: DULOXETINE 30 MG CAPSULE.DR PO SCH (20:52)
[2016-11-30] MEDS ORDERED: TRAZODONE 50MG TABLET PO PRN (21:30)
[2016-12-01 00:46] VITALS: BP 136/89
[2016-12-01] MEDS: INSULIN DETEMIR 100 UNITS/ML, PEN SQ-INSULIN SCH ×2 (01:05→14:28)
[2016-12-01 05:36] LABS: HEMATOCRIT 38.7 % (34.6-47.8); HEMOGLOBIN 13.2 g/dL (11.7-16.4)
[2016-12-01 05:57] LABS: BLOOD UREA NITROGEN 8 mg/dL (7-18)
[2016-12-01] MEDS: INSULIN ASPART 100 UNITS/ML, PEN SQ-INSULIN SCH ×3 (07:28→16:34)
[2016-12-01] MEDS: METOCLOPRAMIDE 10MG TABLET PO SCH ×3 (07:29→16:33)
[2016-12-01] MEDS: SUCRALFATE 1 GM TABLET PO SCH ×3 (07:29→16:33)
[2016-12-01] MEDS: PANTOPRAZOLE 20MG TABLET PO SCH (07:30)
[2016-12-01] MEDS: GABAPENTIN 400 MG CAPSULE PO SCH ×2 (07:30→16:33)
[2016-12-01] MEDS: ENOXAPARIN 100 MG/ML SQ SCH (07:32)
[2016-12-01] MEDS: OXYcodone IR 5MG TABLET PO PRN ×2 (07:44→17:23)
[2016-12-01 08:23] VITALS: BP 139/89
[2016-12-01] MEDS: TEMPLATE NON-FORMULARY MED. (Pentosan Polysulfate Sodium (Elmiron) 100 MG) PO SCH ×2 (09:00→16:00)
[2016-12-01 15:13] VITALS: BP 120/83
== END 2016-12-01 17:40 | disposition home or self-care (01) | DRG 637 ==
LOC: ED 05:51 → EDIP 06:57 → CCU 10:48 → 3NE 11-30 13:56
PROVIDERS: ADMIT Hospitalist; ATTEND Family Medicine
DX: E10.10 Type 1 diabetes mellitus with ketoacidosis without coma (principal); I26.99 Other pulmonary embolism without acute cor pulmonale; K31.84 Gastroparesis; D68.69 Other thrombophilia; E10.43 Type 1 diabetes mellitus with diabetic autonomic (poly)neuropathy; E86.0 Dehydration; E87.1 Hypo-osmolality and hyponatremia; F43.10 Post-traumatic stress disorder, unspecified; F32.9 Major depressive disorder, single episode, unspecified; F41.8 Other specified anxiety disorders; G89.4 Chronic pain syndrome; Z79.01 Long term (current) use of anticoagulants; Z79.4 Long term (current) use of insulin; Z79.891 Long term (current) use of opiate analgesic; Z86.711 Personal history of pulmonary embolism; Z86.718 Personal history of other venous thrombosis and embolism; Z87.891 Personal history of nicotine dependence; Z91.14 Patient's other noncompliance with medication regimen; Z91.19 Patient's noncompliance with other medical treatment and regimen; Z90.710 Acquired absence of both cervix and uterus
CPT/HCPCS: 36415; 71010; 80048; 80053; 81001; 82010; 82803; 82962; 83735; 84484; 85025; 87081; 93005; 96361; 96372; 96374; 96375; J1650; J1815; J2405; J2550; J2765; J7030; J7050; S0028

== ENCOUNTER 2016-12-14 02:08 | Inpatient (IN) | payer MEDICAID ==
[~2016-12-14] VITALS: Ht 170.2 cm; Wt 92.1 kg
[~2016-12-14 02:08] MED LIST changes: -ACID1GRA2 PO; +ACID1GRA3 PO; +DOCU-131 PO; -DOCU-30 PO; -HYDR-3138 PO; +HYDR-3237 PO; +IBUP-1223 PO; -IBUP800T PO; +INSU100C SQ-INSULIN; -ONDA-39 IV; +ONDA4TAB12 IV; -PHEN-494 PO; +PHEN-583 PO; -SUCR1TAB26 PO; +SUCR1TAB33 PO; -TRAM-28 PO; +TRAM-47 PO
[2016-12-14] MEDS ORDERED: ONDANSETRON 2MG/ML, 2ML ONE ×2 (03:10→04:28)
[2016-12-14 03:23] LABS: HEMATOCRIT 51.5 % (34.6-47.8); HEMOGLOBIN 17.1 g/dL (11.7-16.4); WHITE BLOOD COUNT 21.2 x10^3/uL (3.4-10)
[2016-12-14 03:23] LABS: PH, VENOUS 7.234 pH (7.320-7.420)
[2016-12-14] MEDS ORDERED: FAMOTIDINE 20 MG/2 ML ONE (03:29)
[2016-12-14] MEDS ORDERED: ONDANSETRON 2MG/ML, 2ML IVPush ONE (03:30)
[2016-12-14] MEDS ORDERED: SODIUM CHLORIDE 0.9% 1,000ML IVBOLUS ONE ×2 (03:30→04:00)
[2016-12-14] MEDS ORDERED: FAMOTIDINE 20 MG/2 ML IVP ONE (03:30)
[2016-12-14 03:34] LABS: HCG UR OBC PASS
[2016-12-14 03:36] LABS: ASPARTATE AMINO TRANSFERASE 10 U/L (15-37); BLOOD UREA NITROGEN 23 mg/dL (7-18)
[2016-12-14] MEDS ORDERED: REGULAR INSULIN 62.5 UNITS in SODIUM CHLORIDE 0.9% 249.375 ML IV PRN ×2 (03:42→05:41)
[2016-12-14 03:50] LABS: DIFF TOTAL CELLS COUNTED 100 CELL DIFF
[2016-12-14 03:51] LABS: VERIFY COUNTS? YES
[2016-12-14] MEDS ORDERED: NS + 40MEQ KCL 1,000 ML IV ONE ×2 (04:00→04:43)
[2016-12-14] MEDS ORDERED: MORPHINE SULFATE 4 MG/ML, 1ML ONE (04:28)
[2016-12-14] MEDS ORDERED: MORPHINE SULFATE 4 MG/ML, 1ML IVPush PRN ×3 (04:30→06:00)
[2016-12-14] MEDS: ONDANSETRON 2MG/ML, 2ML IVPush PRN ×3 (04:31→21:06)
[2016-12-14] MEDS ORDERED: POTASSIUM CHLORIDE 10 MEQ in SODIUM CHLORIDE 0.9% 1,000 ML IV SCH (05:41)
[2016-12-14] MEDS ORDERED: DEXTROSE 4 GM TAB.CHEW PO PRN (06:00)
[2016-12-14] MEDS ORDERED: hydrALAzine 20 MG/ML, 1ML IV PRN (06:00)
[2016-12-14] MEDS ORDERED: GLUCAGON 1 MG IM PRN (06:00)
[2016-12-14] MEDS ORDERED: ACETAMINOPHEN 325 MG TABLET PO PRN (06:00)
[2016-12-14] MEDS ORDERED: ENOXAPARIN 40 MG/0.4 ML SQ SCH (06:00)
[2016-12-14] MEDS ORDERED: DEXTROSE 50%, 50ML VIAL IVPush PRN (06:00)
[2016-12-14 06:59] LABS: BLOOD UREA NITROGEN 20 mg/dL (7-18)
[2016-12-14] MEDS: OXYcodone IR 5MG TABLET PO PRN (08:03)
[2016-12-14] MEDS: METOCLOPRAMIDE 10MG TABLET PO SCH ×3 (08:11→15:46)
[2016-12-14] MEDS: SUCRALFATE 1 GM TABLET PO SCH ×4 (08:11→20:53)
[2016-12-14] MEDS: QUETIAPINE 25MG TABLET PO SCH ×2 (09:00→20:55)
[2016-12-14] MEDS: PENTOSAN POLYSULFATE SODIUM HOMEMEDPO SCH ×3 (09:00→21:00)
[2016-12-14] MEDS: DOCUSATE 100 MG CAPSULE PO SCH ×2 (09:00→20:53)
[2016-12-14] MEDS ORDERED: ENOXAPARIN 100 MG/ML SQ SCH (09:00)
[2016-12-14] MEDS ORDERED: METOPROLOL 1 MG/ML, 5ML IVPush PRN (09:30)
[2016-12-14] MEDS ORDERED: POTASSIUM CHLORIDE 40 MEQ in SODIUM CHLORIDE 0.9% 1,000 ML IV SCH (09:30)
[2016-12-14] MEDS: SODIUM CHLORIDE FLUSH 10ML SYR IVF SCH ×2 (10:00→21:16)
[2016-12-14] MEDS: GABAPENTIN 400 MG CAPSULE PO SCH ×3 (10:00→20:54)
[2016-12-14] MEDS: MAGNESIUM OXIDE 400 MG TABLET PO SCH ×2 (10:00→20:54)
[2016-12-14] MEDS: PANTOPRAZOLE 20MG TABLET PO SCH (10:00)
[2016-12-14 11:26] LABS: BLOOD UREA NITROGEN 15 mg/dL (7-18); IS PT STATUS REG ER OR PRE ER? NO
[2016-12-14] MEDS: D5%-0.45NACL+KCL 40MEQ 1,000 ML IV SCH ×2 (11:37→17:01)
[2016-12-14 12:03] VITALS: BP 142/89
[2016-12-14 15:30] LABS: BLOOD UREA NITROGEN 11 mg/dL (7-18)
[2016-12-14 19:03] LABS: BLOOD UREA NITROGEN 9 mg/dL (7-18)
[2016-12-14] MEDS: DULOXETINE 30 MG CAPSULE.DR PO SCH (20:53)
[2016-12-14] MEDS: TRAZODONE 150MG TABLET PO SCH (20:54)
[2016-12-14] MEDS: LISINOPRIL 10 MG TABLET PO SCH (20:54)
[2016-12-14] MEDS ORDERED: AMITRIPTYLINE 25 MG TABLET PO SCH (21:00)
[2016-12-14] MEDS: INSULIN ASPART 100 UNITS/ML, PEN SQ-INSULIN SCH (21:15)
[2016-12-14] MEDS: NS + 40MEQ KCL 1,000 ML IV SCH (22:11)
[2016-12-15] MEDS: NS + 40MEQ KCL 1,000 ML IV SCH (03:40)
[2016-12-15] MEDS ORDERED: REGULAR INSULIN 62.5 UNITS in SODIUM CHLORIDE 0.9% 249.375 ML IV PRN (05:41)
[2016-12-15] MEDS: INSULIN ASPART 100 UNITS/ML, PEN SQ-INSULIN SCH ×6 (06:45→20:21)
[2016-12-15] MEDS: METOCLOPRAMIDE 10MG TABLET PO SCH ×3 (06:45→11:39)
[2016-12-15] MEDS: SUCRALFATE 1 GM TABLET PO SCH ×4 (06:45→20:23)
[2016-12-15 08:16] LABS: ASPARTATE AMINO TRANSFERASE 4 U/L (15-37); BLOOD UREA NITROGEN 6 mg/dL (7-18)
[2016-12-15 08:17] LABS: HEMATOCRIT 34.2 % (34.6-47.8); HEMOGLOBIN 11.5 g/dL (11.7-16.4); WHITE BLOOD COUNT 12.3 x10^3/uL (3.4-10)
[2016-12-15] MEDS: PENTOSAN POLYSULFATE SODIUM HOMEMEDPO SCH ×3 (09:00→20:22)
[2016-12-15] MEDS: GABAPENTIN 400 MG CAPSULE PO SCH ×3 (09:00→20:26)
[2016-12-15] MEDS: DOCUSATE 100 MG CAPSULE PO SCH ×2 (09:00→20:23)
[2016-12-15] MEDS: MAGNESIUM OXIDE 400 MG TABLET PO SCH ×2 (09:00→20:26)
[2016-12-15] MEDS: SODIUM CHLORIDE FLUSH 10ML SYR IVF SCH ×2 (09:00→20:23)
[2016-12-15] MEDS: QUETIAPINE 25MG TABLET PO SCH ×2 (09:00→20:27)
[2016-12-15] MEDS: PANTOPRAZOLE 20MG TABLET PO SCH (09:00)
[2016-12-15] MEDS ORDERED: HEPARIN 5,000 UNITS/ML, 1ML SQ SCH (09:30)
[2016-12-15 10:19] LABS: BLOOD UREA NITROGEN 6 mg/dL (7-18)
[2016-12-15] MEDS ORDERED: REGULAR INSULIN 125 UNITS in SODIUM CHLORIDE 0.9% 248.75 ML IV PRN (11:00)
[2016-12-15] MEDS ORDERED: AMITRIPTYLINE 25 MG TABLET PO PRN (11:00)
[2016-12-15] MEDS: INSULIN DETEMIR 100 UNITS/ML, PEN SQ-INSULIN SCH (11:36)
[2016-12-15 15:12] LABS: BLOOD UREA NITROGEN 5 mg/dL (7-18)
[2016-12-15] MEDS: OXYcodone IR 5MG TABLET PO PRN ×2 (16:30→22:11)
[2016-12-15] MEDS: ONDANSETRON 2MG/ML, 2ML IVPush PRN (17:53)
[2016-12-15] MEDS: ENOXAPARIN 80 MG/0.8 ML SQ SCH (17:53)
[2016-12-15] MEDS: DULOXETINE 30 MG CAPSULE.DR PO SCH (20:25)
[2016-12-15] MEDS: TRAZODONE 150MG TABLET PO SCH (20:25)
[2016-12-15] MEDS: LISINOPRIL 10 MG TABLET PO SCH (20:27)
[2016-12-15 21:10] VITALS: BP 103/68
[2016-12-16 01:51] VITALS: BP 104/71
[2016-12-16 05:34] LABS: HEMATOCRIT 32.8 % (34.6-47.8); HEMOGLOBIN 11.1 g/dL (11.7-16.4); WHITE BLOOD COUNT 6.8 x10^3/uL (3.4-10)
[2016-12-16 05:57] LABS: ASPARTATE AMINO TRANSFERASE 124 U/L (15-37); BLOOD UREA NITROGEN 4 mg/dL (7-18)
[2016-12-16 07:27] VITALS: BP 107/74
[2016-12-16] MEDS: GABAPENTIN 400 MG CAPSULE PO SCH ×3 (07:50→20:32)
[2016-12-16] MEDS: DOCUSATE 100 MG CAPSULE PO SCH ×2 (07:50→20:43)
[2016-12-16] MEDS: PANTOPRAZOLE 20MG TABLET PO SCH (07:50)
[2016-12-16] MEDS: SUCRALFATE 1 GM TABLET PO SCH ×4 (07:50→20:33)
[2016-12-16] MEDS: QUETIAPINE 25MG TABLET PO SCH ×2 (07:50→20:32)
[2016-12-16] MEDS: METOCLOPRAMIDE 10MG TABLET PO SCH ×3 (07:50→16:23)
[2016-12-16] MEDS: MAGNESIUM OXIDE 400 MG TABLET PO SCH ×2 (07:50→20:32)
[2016-12-16] MEDS: INSULIN ASPART 100 UNITS/ML, PEN SQ-INSULIN SCH ×4 (07:51→20:44)
[2016-12-16] MEDS: ENOXAPARIN 80 MG/0.8 ML SQ SCH ×2 (07:51→20:30)
[2016-12-16] MEDS: INSULIN DETEMIR 100 UNITS/ML, PEN SQ-INSULIN SCH (07:51)
[2016-12-16] MEDS: PENTOSAN POLYSULFATE SODIUM HOMEMEDPO SCH ×3 (07:53→20:37)
[2016-12-16] MEDS: SODIUM CHLORIDE FLUSH 10ML SYR IVF SCH ×2 (07:53→20:37)
[2016-12-16] MEDS: POTASSIUM CHLORIDE 20 MEQ TAB.ER.PRT PO SCH ×2 (09:13→17:25)
[2016-12-16] MEDS: OXYcodone IR 5MG TABLET PO PRN ×3 (12:08→20:30)
[2016-12-16 12:34] VITALS: BP 124/86
[2016-12-16] MEDS ORDERED: POTASSIUM CHLORIDE 20 MEQ TAB.ER.PRT PO ONE (14:30)
[2016-12-16] MEDS ORDERED: MAGNESIUM SULFATE PMX 2GM/50ML 50 ML IV ONE (14:30)
[2016-12-16 18:58] VITALS: BP 119/81
[2016-12-16] MEDS: TRAZODONE 150MG TABLET PO SCH (20:32)
[2016-12-16] MEDS: DULOXETINE 30 MG CAPSULE.DR PO SCH (20:33)
[2016-12-16] MEDS: LISINOPRIL 10 MG TABLET PO SCH (20:43)
[2016-12-17 01:22] VITALS: BP 101/67
[2016-12-17 05:49] LABS: HEMATOCRIT 31.3 % (34.6-47.8); HEMOGLOBIN 10.6 g/dL (11.7-16.4); WHITE BLOOD COUNT 4.1 x10^3/uL (3.4-10)
[2016-12-17 05:58] LABS: ASPARTATE AMINO TRANSFERASE 524 U/L (15-37); BLOOD UREA NITROGEN 5 mg/dL (7-18)
[2016-12-17 06:54] VITALS: BP 106/73
[2016-12-17] MEDS: OXYcodone IR 5MG TABLET PO PRN ×2 (07:57→16:45)
[2016-12-17] MEDS: MAGNESIUM OXIDE 400 MG TABLET PO SCH ×2 (07:58→21:10)
[2016-12-17] MEDS: GABAPENTIN 400 MG CAPSULE PO SCH ×3 (07:58→21:11)
[2016-12-17] MEDS: METOCLOPRAMIDE 10MG TABLET PO SCH ×3 (07:58→15:44)
[2016-12-17] MEDS: DOCUSATE 100 MG CAPSULE PO SCH ×2 (07:58→21:09)
[2016-12-17] MEDS: SUCRALFATE 1 GM TABLET PO SCH ×4 (07:58→21:09)
[2016-12-17] MEDS: QUETIAPINE 25MG TABLET PO SCH ×2 (07:58→21:11)
[2016-12-17] MEDS: PANTOPRAZOLE 20MG TABLET PO SCH (07:58)
[2016-12-17] MEDS: ENOXAPARIN 80 MG/0.8 ML SQ SCH ×2 (07:59→19:49)
[2016-12-17] MEDS: POTASSIUM CHLORIDE 20 MEQ TAB.ER.PRT PO SCH ×2 (07:59→16:45)
[2016-12-17] MEDS: INSULIN ASPART 100 UNITS/ML, PEN SQ-INSULIN SCH ×4 (08:00→21:08)
[2016-12-17] MEDS: INSULIN DETEMIR 100 UNITS/ML, PEN SQ-INSULIN SCH (08:00)
[2016-12-17] MEDS: PENTOSAN POLYSULFATE SODIUM HOMEMEDPO SCH ×3 (08:01→21:00)
[2016-12-17] MEDS: SODIUM CHLORIDE FLUSH 10ML SYR IVF SCH ×2 (08:01→21:15)
[2016-12-17 15:03] VITALS: BP 107/74
[2016-12-17 19:00] VITALS: BP 107/74
[2016-12-17] MEDS: DULOXETINE 30 MG CAPSULE.DR PO SCH (21:10)
[2016-12-17] MEDS: LISINOPRIL 10 MG TABLET PO SCH (21:10)
[2016-12-17] MEDS: TRAZODONE 150MG TABLET PO SCH (21:11)
[2016-12-18 01:36] VITALS: BP 104/71
[2016-12-18 07:06] VITALS: BP 114/79
[2016-12-18] MEDS: OXYcodone IR 5MG TABLET PO PRN ×3 (07:46→20:53)
[2016-12-18] MEDS: INSULIN ASPART 100 UNITS/ML, PEN SQ-INSULIN SCH ×4 (07:46→20:51)
[2016-12-18] MEDS: INSULIN DETEMIR 100 UNITS/ML, PEN SQ-INSULIN SCH ×2 (07:47→20:50)
[2016-12-18] MEDS: PANTOPRAZOLE 20MG TABLET PO SCH (07:47)
[2016-12-18] MEDS: QUETIAPINE 25MG TABLET PO SCH ×2 (07:47→20:52)
[2016-12-18] MEDS: POTASSIUM CHLORIDE 20 MEQ TAB.ER.PRT PO SCH ×2 (07:48→16:48)
[2016-12-18] MEDS: ENOXAPARIN 80 MG/0.8 ML SQ SCH (07:48)
[2016-12-18] MEDS: PENTOSAN POLYSULFATE SODIUM HOMEMEDPO SCH ×3 (07:48→21:00)
[2016-12-18] MEDS: METOCLOPRAMIDE 10MG TABLET PO SCH ×3 (07:48→15:40)
[2016-12-18] MEDS: DOCUSATE 100 MG CAPSULE PO SCH ×2 (07:48→20:53)
[2016-12-18] MEDS: GABAPENTIN 400 MG CAPSULE PO SCH ×3 (07:48→20:52)
[2016-12-18] MEDS: MAGNESIUM OXIDE 400 MG TABLET PO SCH ×2 (07:48→20:52)
[2016-12-18] MEDS: SUCRALFATE 1 GM TABLET PO SCH ×4 (07:48→20:53)
[2016-12-18] MEDS: SODIUM CHLORIDE FLUSH 10ML SYR IVF SCH ×2 (07:49→20:53)
[2016-12-18] MEDS ORDERED: LORazepam 1MG TABLET ONE (12:02)
[2016-12-18 12:50] VITALS: BP 111/75
[2016-12-18] MEDS ORDERED: OMNIPAQUE 350 MG/ML, 100ML BOTTLE ONE (14:04)
[2016-12-18] MEDS: RIVAROXABAN 15 MG TABLET PO SCH (18:35)
[2016-12-18 18:55] VITALS: BP 109/75
[2016-12-18] MEDS: LISINOPRIL 10 MG TABLET PO SCH (20:52)
[2016-12-18] MEDS: TRAZODONE 150MG TABLET PO SCH (20:52)
[2016-12-18] MEDS: DULOXETINE 30 MG CAPSULE.DR PO SCH (20:53)
[2016-12-19 00:17] VITALS: BP 108/75
[2016-12-19 05:20] LABS: HEMATOCRIT 33.9 % (34.6-47.8); HEMOGLOBIN 11.4 g/dL (11.7-16.4); WHITE BLOOD COUNT 5.5 x10^3/uL (3.4-10)
[2016-12-19 05:27] LABS: ASPARTATE AMINO TRANSFERASE 38 U/L (15-37); BLOOD UREA NITROGEN 11 mg/dL (7-18)
[2016-12-19] MEDS: SUCRALFATE 1 GM TABLET PO SCH ×4 (07:00→20:40)
[2016-12-19 07:16] VITALS: BP 106/75
[2016-12-19] MEDS: OXYcodone IR 5MG TABLET PO PRN ×4 (08:00→22:01)
[2016-12-19] MEDS: QUETIAPINE 25MG TABLET PO SCH ×2 (08:01→20:40)
[2016-12-19] MEDS: PANTOPRAZOLE 20MG TABLET PO SCH (08:01)
[2016-12-19] MEDS: MAGNESIUM OXIDE 400 MG TABLET PO SCH ×2 (08:02→20:41)
[2016-12-19] MEDS: GABAPENTIN 400 MG CAPSULE PO SCH ×3 (08:02→20:41)
[2016-12-19] MEDS: POTASSIUM CHLORIDE 20 MEQ TAB.ER.PRT PO SCH ×2 (08:02→17:11)
[2016-12-19] MEDS: METOCLOPRAMIDE 10MG TABLET PO SCH ×3 (08:02→17:10)
[2016-12-19] MEDS: DOCUSATE 100 MG CAPSULE PO SCH ×2 (08:02→20:40)
[2016-12-19] MEDS: RIVAROXABAN 15 MG TABLET PO SCH ×2 (08:02→17:11)
[2016-12-19] MEDS: INSULIN ASPART 100 UNITS/ML, PEN SQ-INSULIN SCH ×4 (08:03→21:12)
[2016-12-19] MEDS: SODIUM CHLORIDE FLUSH 10ML SYR IVF SCH ×2 (08:04→21:13)
[2016-12-19] MEDS: PENTOSAN POLYSULFATE SODIUM HOMEMEDPO SCH ×3 (08:04→20:36)
[2016-12-19] MEDS: INSULIN DETEMIR 100 UNITS/ML, PEN SQ-INSULIN SCH ×2 (08:04→21:11)
[2016-12-19 14:00] VITALS: BP 110/80
[2016-12-19] MEDS ORDERED: ACETAMINOPHEN 325 MG TABLET PO PRN (15:00)
[2016-12-19] MEDS ORDERED: INSULIN DETEMIR 100 UNITS/ML, PEN SQ-INSULIN ONE (15:00)
[2016-12-19] MEDS ORDERED: DEXTROSE 4 GM TAB.CHEW PO PRN (15:00)
[2016-12-19] MEDS ORDERED: GLUCAGON 1 MG IM PRN (15:00)
[2016-12-19 17:00] VITALS: BP 110/78
[2016-12-19 19:51] VITALS: BP 106/72
[2016-12-19] MEDS: TRAZODONE 150MG TABLET PO SCH (20:40)
[2016-12-19] MEDS: DULOXETINE 30 MG CAPSULE.DR PO SCH (20:41)
[2016-12-19] MEDS: LISINOPRIL 10 MG TABLET PO SCH (20:41)
[2016-12-20 01:47] VITALS: BP 108/74
[2016-12-20 05:12] LABS: HEMATOCRIT 34.9 % (34.6-47.8); HEMOGLOBIN 11.8 g/dL (11.7-16.4); WHITE BLOOD COUNT 6.8 x10^3/uL (3.4-10)
[2016-12-20 05:16] LABS: BLOOD UREA NITROGEN 14 mg/dL (7-18)
[2016-12-20 06:55] VITALS: BP 105/73
[2016-12-20] MEDS: OXYcodone IR 5MG TABLET PO PRN ×2 (07:05→12:20)
[2016-12-20] MEDS: PANTOPRAZOLE 20MG TABLET PO SCH (07:50)
[2016-12-20] MEDS: SUCRALFATE 1 GM TABLET PO SCH ×3 (07:50→17:01)
[2016-12-20] MEDS: MAGNESIUM OXIDE 400 MG TABLET PO SCH (07:50)
[2016-12-20] MEDS: POTASSIUM CHLORIDE 20 MEQ TAB.ER.PRT PO SCH ×2 (07:50→16:59)
[2016-12-20] MEDS: METOCLOPRAMIDE 10MG TABLET PO SCH ×3 (07:50→16:59)
[2016-12-20] MEDS: INSULIN DETEMIR 100 UNITS/ML, PEN SQ-INSULIN SCH (08:33)
[2016-12-20] MEDS: RIVAROXABAN 15 MG TABLET PO SCH ×2 (08:34→16:59)
[2016-12-20] MEDS: INSULIN ASPART 100 UNITS/ML, PEN SQ-INSULIN SCH ×3 (08:34→17:00)
[2016-12-20] MEDS: GABAPENTIN 400 MG CAPSULE PO SCH ×2 (08:35→16:59)
[2016-12-20] MEDS: DOCUSATE 100 MG CAPSULE PO SCH (08:35)
[2016-12-20] MEDS: QUETIAPINE 25MG TABLET PO SCH (08:35)
[2016-12-20] MEDS: PENTOSAN POLYSULFATE SODIUM HOMEMEDPO SCH ×2 (08:36→17:01)
[2016-12-20] MEDS: SODIUM CHLORIDE FLUSH 10ML SYR IVF SCH (08:38)
[2016-12-20 13:25] VITALS: BP 107/75
[2016-12-20] MEDS ORDERED: RIVA15TA PO (16:18)
[2016-12-20] MEDS ORDERED: INSULIN DETEMIR 100 UNITS/ML, PEN SQ-INSULIN SCH (21:00)
== END 2016-12-20 18:22 | disposition home or self-care (01) | DRG 637 ==
LOC: ED 02:47 → EDIP 04:07 → CCU 05:59 → 3NE 12-15 20:58
DX: E10.10 Type 1 diabetes mellitus with ketoacidosis without coma (principal); E43 Unspecified severe protein-calorie malnutrition; N17.9 Acute kidney failure, unspecified; R65.10 Systemic inflammatory response syndrome (SIRS) of non-infectious origin without acute organ dysfunction; E10.40 Type 1 diabetes mellitus with diabetic neuropathy, unspecified; E83.42 Hypomagnesemia; E87.1 Hypo-osmolality and hyponatremia; E86.0 Dehydration; D64.9 Anemia, unspecified; D72.829 Elevated white blood cell count, unspecified; E87.6 Hypokalemia; F32.9 Major depressive disorder, single episode, unspecified; F41.1 Generalized anxiety disorder; F43.10 Post-traumatic stress disorder, unspecified; I10 Essential (primary) hypertension; K21.9 Gastro-esophageal reflux disease without esophagitis; Z79.01 Long term (current) use of anticoagulants; Z79.4 Long term (current) use of insulin; Z68.31 Body mass index [BMI] 31.0-31.9, adult; Z86.711 Personal history of pulmonary embolism; Z86.718 Personal history of other venous thrombosis and embolism; Z90.710 Acquired absence of both cervix and uterus; Z88.0 Allergy status to penicillin; Z88.2 Allergy status to sulfonamides; Z87.891 Personal history of nicotine dependence; Z72.89 Other problems related to lifestyle; Z90.49 Acquired absence of other specified parts of digestive tract
CPT/HCPCS: 36415; 71010; 71275; 80048; 80053; 81001; 81025; 82010; 82040; 82803; 82962; 83036; 83690; 83735; 84100; 84484; 85025; 87040; 87081; 87086; 93005; 96361; 96374; 96375; J1644; J1650; J1815; J2405; Q9967; J0360; J3475; J3480; J7030; J7050; S0028

== ENCOUNTER 2017-01-30 22:34 | Inpatient (IN) | payer MEDICAID ==
[~2017-01-30] VITALS: Ht 170.2 cm; Wt 93.0 kg
[~2017-01-30 22:34] MED LIST changes: +NICO-485 TD; -NICO1PAT10 TD; +RIVA15TA PO
[2017-01-30] MEDS ORDERED: ONDANSETRON 2MG/ML, 2ML ONE (23:09)
[2017-01-30] MEDS ORDERED: MAALOX/HYOSCYAMINE/LIDOCAINE 45 ML BTL PO ONE (23:30)
[2017-01-30] MEDS ORDERED: SODIUM CHLORIDE 0.9% 1,000ML IVBOLUS ONE (23:30)
[2017-01-30] MEDS ORDERED: ONDANSETRON 2MG/ML, 2ML IVPush ONE (23:30)
[2017-01-30 23:33] LABS: PH, VENOUS 7.266 pH (7.320-7.420)
[2017-01-30 23:35] LABS: HEMATOCRIT 49.6 % (34.6-47.8); WHITE BLOOD COUNT 21.2 x10^3/uL (3.4-10)
[2017-01-30 23:46] LABS: ASPARTATE AMINO TRANSFERASE 7 U/L (15-37); BLOOD UREA NITROGEN 20 mg/dL (7-18)
[2017-01-30 23:49] LABS: DIFF TOTAL CELLS COUNTED 100 CELL DIFF
[2017-01-30 23:52] LABS: VERIFY COUNTS? YES
[2017-01-30] MEDS ORDERED: MAALOX/HYOSCYAMINE/LIDOCAINE 45 ML BTL ONE (23:55)
[2017-01-30 23:56] LABS: IS PT STATUS REG ER OR PRE ER? YES
[2017-01-31] MEDS ORDERED: morphine SULFATE 10 MG/ML, 1ML IVPush ONE
[2017-01-31] MEDS ORDERED: METO10TA82 PO (00:08)
[2017-01-31] MEDS ORDERED: INSU100V5 SQ-INSULIN (00:08)
[2017-01-31 00:14] LABS: HCG UR LOT HCG7030192
[2017-01-31] MEDS ORDERED: MORPHINE SULFATE 4 MG/ML, 1ML ONE (00:15)
[2017-01-31 00:26] LABS: PATH.CAST-FLAG NOT PRESENT; SPERM-FLAG NOT PRESENT; SRC-FLAG NOT PRESENT; XTAL-FLAG NOT PRESENT; YLC-FLAG NOT PRESENT
[2017-01-31 00:27] LABS: HCG UR OBC PASS
[2017-01-31] MEDS ORDERED: POTASSIUM CHLORIDE 40 MEQ in SODIUM CHLORIDE 0.9% 500 ML IV ONE ×2 (00:30→07:30)
[2017-01-31] MEDS ORDERED: LABETALOL 5MG/ML, 20ML IVPush ONE (01:00)
[2017-01-31] MEDS ORDERED: METOCLOPRAMIDE 5 MG/ML, 2ML ONE (01:06)
[2017-01-31] MEDS ORDERED: LABETALOL 5MG/ML, 20ML ONE (01:06)
[2017-01-31] MEDS ORDERED: REGULAR INSULIN 62.5 UNITS in SODIUM CHLORIDE 0.9% 249.375 ML IV PRN (01:09)
[2017-01-31] MEDS ORDERED: D5%-0.45% NACL 1,000 ML IV PRN (01:09)
[2017-01-31] MEDS ORDERED: MAGNESIUM SULFATE PMX 4GM/100M 100 ML IV ONE (01:30)
[2017-01-31] MEDS ORDERED: hydrALAzine 20 MG/ML, 1ML IV PRN ×2 (01:30→05:30)
[2017-01-31] MEDS ORDERED: ENOXAPARIN 30 MG/0.3 ML SQ SCH (01:30)
[2017-01-31] MEDS ORDERED: PROMETHAZINE 25 MG/ML, 1ML IVPush PRN (01:30)
[2017-01-31] MEDS ORDERED: POTASSIUM PHOSPHATE 44 MEQ in SODIUM CHLORIDE 0.9% 500 ML IV ONE (01:30)
[2017-01-31] MEDS ORDERED: METOCLOPRAMIDE 5 MG/ML, 2ML IVPush ONE (01:30)
[2017-01-31] MEDS ORDERED: METOCLOPRAMIDE 5 MG/ML, 2ML IVPush PRN (01:30)
[2017-01-31 02:30] VITALS: BP 170/97
[2017-01-31 02:44] LABS: BLOOD UREA NITROGEN 17 mg/dL (7-18)
[2017-01-31 04:00] VITALS: BP 160/93
[2017-01-31] MEDS: ONDANSETRON 2MG/ML, 2ML IVPush PRN ×2 (04:33→16:18)
[2017-01-31 06:07] LABS: BLOOD UREA NITROGEN 14 mg/dL (7-18)
[2017-01-31] MEDS: SODIUM CHLORIDE 0.9% 1,000 ML IV SCH ×3 (06:39→23:00)
[2017-01-31] MEDS: INSULIN ASPART 100 UNITS/ML, PEN SQ-INSULIN SCH ×4 (08:38→21:17)
[2017-01-31] MEDS: INSULIN DETEMIR 100 UNITS/ML, PEN SQ-INSULIN SCH ×2 (08:38→21:26)
[2017-01-31] MEDS: CIPROFLOXACIN/PMX 400MG/200ML 200 ML IV SCH ×2 (09:00→21:26)
[2017-01-31] MEDS: ENOXAPARIN 40 MG/0.4 ML SQ SCH (10:34)
[2017-01-31 13:30] LABS: BLOOD UREA NITROGEN 10 mg/dL (7-18)
[2017-02-01 02:00] VITALS: BP 163/100
[2017-02-01 05:21] LABS: BLOOD UREA NITROGEN 8 mg/dL (7-18)
[2017-02-01 05:27] LABS: HEMOGLOBIN 12.5 g/dL (11.7-16.4); WHITE BLOOD COUNT 9.6 x10^3/uL (3.4-10)
[2017-02-01] MEDS: SODIUM CHLORIDE 0.9% 1,000 ML IV SCH (05:48)
[2017-02-01] MEDS ORDERED: POTASSIUM CHLORIDE 20 MEQ TAB.ER.PRT PO ONE (08:00)
[2017-02-01 08:21] VITALS: BP 158/98
[2017-02-01] MEDS: INSULIN ASPART 100 UNITS/ML, PEN SQ-INSULIN SCH ×2 (08:48→11:52)
[2017-02-01] MEDS: ONDANSETRON 2MG/ML, 2ML IVPush PRN (08:48)
[2017-02-01] MEDS: INSULIN DETEMIR 100 UNITS/ML, PEN SQ-INSULIN SCH (08:49)
[2017-02-01] MEDS: CIPROFLOXACIN/PMX 400MG/200ML 200 ML IV SCH (08:57)
[2017-02-01] MEDS: ENOXAPARIN 40 MG/0.4 ML SQ SCH (10:17)
[2017-02-01 12:46] VITALS: BP 163/94
[2017-02-01] MEDS ORDERED: CIPR500T87 PO (13:23)
[2017-02-01 14:00] VITALS: BP 153/88
== END 2017-02-01 14:51 | disposition home or self-care (01) | DRG 638 ==
LOC: ED 23:06 → SUATTDRO 01-31 01:01 → EDIP 01-31 01:06 → CCU 01-31 02:19 → 3NE 02-01 03:00
PROVIDERS: ADMIT Hospitalist; ATTEND Hospitalist
DX: E10.10 Type 1 diabetes mellitus with ketoacidosis without coma (principal); N17.9 Acute kidney failure, unspecified; K31.84 Gastroparesis; E10.43 Type 1 diabetes mellitus with diabetic autonomic (poly)neuropathy; E83.39 Other disorders of phosphorus metabolism; E83.42 Hypomagnesemia; N39.0 Urinary tract infection, site not specified; E86.0 Dehydration; E87.6 Hypokalemia; F43.10 Post-traumatic stress disorder, unspecified; I10 Essential (primary) hypertension; K21.9 Gastro-esophageal reflux disease without esophagitis; Z79.01 Long term (current) use of anticoagulants; Z79.4 Long term (current) use of insulin; Z86.711 Personal history of pulmonary embolism; Z86.718 Personal history of other venous thrombosis and embolism; Z87.891 Personal history of nicotine dependence; Z91.14 Patient's other noncompliance with medication regimen; Z88.0 Allergy status to penicillin; Z88.2 Allergy status to sulfonamides; Z88.8 Allergy status to other drugs, medicaments and biological substances
CPT/HCPCS: 36415; 71010; 80048; 80053; 81001; 81025; 82010; 82803; 82962; 83036; 83690; 83735; 83930; 84100; 84484; 85025; 87040; 87081; 87086; 93005; 96365; 96366; 96375; J0744; J1650; J1815; J2405; J3480; J0360; J2270; J2765; J3475; J7030; J7040

== ENCOUNTER 2017-03-28 17:17 | Inpatient (IN) | payer MEDICAID ==
[~2017-03-28] VITALS: Ht 170.2 cm; Wt 100.0 kg
[2017-03-28] MEDS: INSULIN GLARGINE HUM REC ANLOG 20 UNIT SQ-INSULIN SCH (00:19)
[2017-03-28] MEDS ORDERED: SODIUM CHLORIDE 0.9% 1,000 ML IV ONE (17:21)
[2017-03-28] MEDS ORDERED: ONDANSETRON 2MG/ML, 2ML ONE (17:27)
[2017-03-28] MEDS ORDERED: SODIUM CHLORIDE 0.9% 1,000ML IVBOLUS ONE ×2 (17:30→18:30)
[2017-03-28] MEDS ORDERED: SODIUM CHLORIDE FLUSH 10ML SYR IVF ONE (17:30)
[2017-03-28] MEDS ORDERED: ONDANSETRON 2MG/ML, 2ML IVPush ONE (17:30)
[2017-03-28] MEDS ORDERED: morphine SULFATE 10 MG/ML, 1ML ONE (17:45)
[2017-03-28] MEDS: MORPHINE SULFATE 4 MG/ML, 1ML IVPush PRN ×2 (17:46→18:06)
[2017-03-28] MEDS ORDERED: PLEASE ENTER HEIGHT AND WEIGHT MC SCH (18:00)
[2017-03-28 18:05] LABS: HEMATOCRIT 46.6 % (34.6-47.8); HEMOGLOBIN 15.9 g/dL (11.7-16.4); WHITE BLOOD COUNT 21.2 x10^3/uL (3.4-10)
[2017-03-28] MEDS ORDERED: INSU100C SQ-INSULIN (18:13)
[2017-03-28] MEDS ORDERED: METO10TA82 PO (18:13)
[2017-03-28] MEDS ORDERED: QUET100T4 PO (18:13)
[2017-03-28] MEDS ORDERED: INSU300I SQ-INSULIN (18:13)
[2017-03-28] MEDS ORDERED: RIVA20TA PO (18:13)
[2017-03-28 18:16] LABS: ASPARTATE AMINO TRANSFERASE 10 U/L (15-37); BLOOD UREA NITROGEN 31 mg/dL (7-18)
[2017-03-28 18:43] LABS: DIFF TOTAL CELLS COUNTED 100 CELL DIFF
[2017-03-28 18:46] LABS: VERIFY COUNTS? YES
[2017-03-28] MEDS ORDERED: INSULIN REGULAR 100 UNITS/ML, 3ML VIAL ONE ×2 (19:47→19:53)
[2017-03-28] MEDS ORDERED: PROMETHAZINE 25 MG/ML, 1ML IM PRN (20:00)
[2017-03-28] MEDS ORDERED: INSULIN REGULAR 100 UNITS/ML, 3ML VIAL IVPush ONE (20:00)
[2017-03-28] MEDS ORDERED: GLUCAGON 1 MG IM PRN (20:00)
[2017-03-28] MEDS ORDERED: DEXTROSE 50%, 50ML SYRINGE IVPush PRN (20:00)
[2017-03-28] MEDS ORDERED: DEXTROSE 4 GM TAB.CHEW PO PRN (20:00)
[2017-03-28] MEDS ORDERED: METOCLOPRAMIDE 5 MG/ML, 2ML IVPush PRN (20:00)
[2017-03-28] MEDS: SODIUM CHLORIDE 0.9% 1,000 ML IV SCH (20:08)
[2017-03-28] MEDS: QUETIAPINE 100MG TABLET PO SCH (21:00)
[2017-03-28] MEDS ORDERED: TRAZODONE 150MG TABLET PO SCH (21:00)
[2017-03-28 21:13] LABS: BLOOD UREA NITROGEN 25 mg/dL (7-18)
[2017-03-28] MEDS: INSULIN ASPART 100 UNITS/ML, PEN SQ-INSULIN SCH (21:31)
[2017-03-28] MEDS: DULOXETINE 30 MG CAPSULE.DR PO SCH (21:32)
[2017-03-28 22:50] VITALS: BP 131/81
[2017-03-29] MEDS: SODIUM CHLORIDE FLUSH 10ML SYR IVF SCH ×4 (00:01→21:00)
[2017-03-29] MEDS: ACETAMINOPHEN 325 MG TABLET PO PRN ×2 (00:11→14:30)
[2017-03-29] MEDS: ONDANSETRON 2MG/ML, 2ML IVPush PRN (00:11)
[2017-03-29 01:29] LABS: BLOOD UREA NITROGEN 21 mg/dL (7-18)
[2017-03-29 02:00] VITALS: BP 151/93
[2017-03-29] MEDS ORDERED: POTASSIUM CHLORIDE 20 MEQ TAB.ER.PRT PO ONE ×3 (02:00→14:30)
[2017-03-29] MEDS ORDERED: MAGNESIUM SULFATE PMX 2GM/50ML 50 ML IV ONE (02:00)
[2017-03-29] MEDS ORDERED: POTASSIUM CHLORIDE 40 MEQ in SODIUM CHLORIDE 0.9% 500 ML IV ONE (02:00)
[2017-03-29] MEDS: INSULIN ASPART 100 UNITS/ML, PEN SQ-INSULIN SCH ×6 (02:11→20:51)
[2017-03-29 04:13] VITALS: BP 134/87
[2017-03-29 05:53] LABS: HEMATOCRIT 40.6 % (34.6-47.8); HEMOGLOBIN 13.8 g/dL (11.7-16.4); WHITE BLOOD COUNT 14.5 x10^3/uL (3.4-10)
[2017-03-29 06:22] LABS: BLOOD UREA NITROGEN 17 mg/dL (7-18)
[2017-03-29 07:48] VITALS: BP 130/84
[2017-03-29] MEDS: INSULIN GLARGINE HUM REC ANLOG 20 UNIT SQ-INSULIN SCH ×2 (07:52→20:44)
[2017-03-29] MEDS: SODIUM CHLORIDE 0.9% 1,000 ML IV SCH ×4 (07:52→18:12)
[2017-03-29] MEDS: RIVAROXABAN 20 MG TABLET PO SCH (07:52)
[2017-03-29] MEDS: PANTOPRAZOLE 20MG TABLET PO SCH (07:52)
[2017-03-29 13:58] VITALS: BP 154/90
[2017-03-29] MEDS: OXYcodone IR 5MG TABLET PO PRN (14:52)
[2017-03-29 16:48] LABS: BLOOD UREA NITROGEN 12 mg/dL (7-18)
[2017-03-29 19:36] VITALS: BP 149/88
[2017-03-29] MEDS: QUETIAPINE 100MG TABLET PO SCH (20:49)
[2017-03-29] MEDS: DULOXETINE 30 MG CAPSULE.DR PO SCH (20:50)
[2017-03-29] MEDS: TRAZODONE 100MG TABLET PO SCH (20:50)
[2017-03-30 02:43] VITALS: BP 132/83
[2017-03-30] MEDS: SODIUM CHLORIDE 0.9% 1,000 ML IV SCH (05:00)
[2017-03-30 05:17] LABS: HEMATOCRIT 36.6 % (34.6-47.8); HEMOGLOBIN 12.4 g/dL (11.7-16.4); WHITE BLOOD COUNT 7.5 x10^3/uL (3.4-10)
[2017-03-30 05:30] LABS: BLOOD UREA NITROGEN 8 mg/dL (7-18)
[2017-03-30 05:33] LABS: ASPARTATE AMINO TRANSFERASE 14 U/L (15-37)
[2017-03-30 07:53] VITALS: BP 143/85
[2017-03-30] MEDS: SODIUM CHLORIDE FLUSH 10ML SYR IVF SCH ×2 (09:00→20:35)
[2017-03-30 09:03] VITALS: BP 143/87
[2017-03-30] MEDS: PANTOPRAZOLE 20MG TABLET PO SCH (09:27)
[2017-03-30] MEDS: RIVAROXABAN 20 MG TABLET PO SCH (09:27)
[2017-03-30] MEDS: INSULIN ASPART 100 UNITS/ML, PEN SQ-INSULIN SCH ×4 (09:27→20:37)
[2017-03-30] MEDS: ONDANSETRON 2MG/ML, 2ML IVPush PRN ×2 (10:24→18:16)
[2017-03-30] MEDS ORDERED: MAALOX/HYOSCYAMINE/LIDOCAINE 45 ML BTL PO ONE (10:30)
[2017-03-30 14:53] VITALS: BP 148/95
[2017-03-30] MEDS: OXYcodone IR 5MG TABLET PO PRN ×2 (16:31→21:59)
[2017-03-30] MEDS ORDERED: SODIUM CHLORIDE 0.9% 1,000 ML IV SCH (19:38)
[2017-03-30 20:32] VITALS: BP 162/100
[2017-03-30] MEDS: QUETIAPINE 100MG TABLET PO SCH (20:35)
[2017-03-30] MEDS: MAALOX/HYOSCYAMINE/LIDOCAINE 45 ML BTL PO SCH (20:35)
[2017-03-30] MEDS: TRAZODONE 100MG TABLET PO SCH (20:35)
[2017-03-30] MEDS: DULOXETINE 30 MG CAPSULE.DR PO SCH (20:35)
[2017-03-30] MEDS: INSULIN DETEMIR 100 UNITS/ML, PEN SQ-INSULIN SCH (20:37)
[2017-03-30] MEDS ORDERED: INSULIN DETEMIR 100 UNITS/ML, PEN SQ-INSULIN SCH (21:00)
[2017-03-30] MEDS ORDERED: LISINOPRIL 10 MG TABLET PO ONE (21:30)
[2017-03-30] MEDS: LISINOPRIL 10 MG TABLET PO SCH (21:59)
[2017-03-31 00:28] VITALS: BP 150/94
[2017-03-31] MEDS: OXYcodone IR 5MG TABLET PO PRN ×3 (04:38→16:21)
[2017-03-31 06:21] LABS: HEMATOCRIT 36.3 % (34.6-47.8); HEMOGLOBIN 12.4 g/dL (11.7-16.4); WHITE BLOOD COUNT 6.9 x10^3/uL (3.4-10)
[2017-03-31 06:27] LABS: BLOOD UREA NITROGEN 9 mg/dL (7-18)
[2017-03-31 08:00] VITALS: BP 144/88
[2017-03-31] MEDS ORDERED: INSULIN DETEMIR 100 UNITS/ML, PEN SQ-INSULIN SCH (08:00)
[2017-03-31] MEDS ORDERED: GABAPENTIN 400 MG CAPSULE ONE (09:10)
[2017-03-31] MEDS: RIVAROXABAN 20 MG TABLET PO SCH (09:19)
[2017-03-31] MEDS: PANTOPRAZOLE 20MG TABLET PO SCH (09:19)
[2017-03-31] MEDS: INSULIN ASPART 100 UNITS/ML, PEN SQ-INSULIN SCH ×4 (09:19→20:31)
[2017-03-31] MEDS: SODIUM CHLORIDE FLUSH 10ML SYR IVF SCH ×2 (09:20→20:27)
[2017-03-31] MEDS: MAALOX/HYOSCYAMINE/LIDOCAINE 45 ML BTL PO SCH ×2 (09:20→20:28)
[2017-03-31] MEDS: GABAPENTIN 400 MG CAPSULE PO SCH ×2 (09:20→20:29)
[2017-03-31] MEDS ORDERED: MAGNESIUM SULFATE PMX 2GM/50ML 50 ML IV ONE (12:00)
[2017-03-31] MEDS: GABAPENTIN 300 MG CAPSULE PO SCH (14:18)
[2017-03-31 15:02] VITALS: BP 145/97
[2017-03-31] MEDS: METOCLOPRAMIDE 10MG TABLET PO PRN (18:18)
[2017-03-31 19:20] VITALS: BP 148/96
[2017-03-31] MEDS: DULOXETINE 30 MG CAPSULE.DR PO SCH (20:28)
[2017-03-31] MEDS: TRAZODONE 100MG TABLET PO SCH (20:28)
[2017-03-31] MEDS: QUETIAPINE 100MG TABLET PO SCH (20:29)
[2017-03-31] MEDS: LISINOPRIL 10 MG TABLET PO SCH (20:29)
[2017-03-31] MEDS: INSULIN DETEMIR 100 UNITS/ML, PEN SQ-INSULIN SCH (20:30)
[2017-03-31] MEDS ORDERED: LISINOPRIL 10 MG TABLET PO SCH (21:00)
[2017-04-01 03:12] VITALS: BP 111/73
[2017-04-01 05:33] LABS: HEMATOCRIT 37.2 % (34.6-47.8); HEMOGLOBIN 12.8 g/dL (11.7-16.4); WHITE BLOOD COUNT 7.7 x10^3/uL (3.4-10)
[2017-04-01 05:34] LABS: ASPARTATE AMINO TRANSFERASE 40 U/L (15-37); BLOOD UREA NITROGEN 13 mg/dL (7-18)
[2017-04-01 07:07] VITALS: BP 121/70
[2017-04-01] MEDS ORDERED: INSULIN DETEMIR 100 UNITS/ML, PEN SQ-INSULIN SCH (08:00)
[2017-04-01] MEDS: MAALOX/HYOSCYAMINE/LIDOCAINE 45 ML BTL PO SCH ×2 (08:13→21:27)
[2017-04-01] MEDS: INSULIN ASPART 100 UNITS/ML, PEN SQ-INSULIN SCH ×4 (08:13→21:26)
[2017-04-01] MEDS: GABAPENTIN 400 MG CAPSULE PO SCH ×2 (08:14→21:23)
[2017-04-01] MEDS: OXYcodone IR 5MG TABLET PO PRN ×2 (08:14→17:14)
[2017-04-01] MEDS: GABAPENTIN 300 MG CAPSULE PO SCH (08:14)
[2017-04-01] MEDS: PANTOPRAZOLE 20MG TABLET PO SCH (08:14)
[2017-04-01] MEDS: RIVAROXABAN 20 MG TABLET PO SCH (08:14)
[2017-04-01] MEDS: SODIUM CHLORIDE FLUSH 10ML SYR IVF SCH ×2 (08:16→21:21)
[2017-04-01] MEDS: METOCLOPRAMIDE 10MG TABLET PO PRN (09:31)
[2017-04-01 13:30] VITALS: BP 137/85
[2017-04-01] MEDS ORDERED: DOCUSATE 100 MG CAPSULE PO PRN (17:30)
[2017-04-01 19:34] VITALS: BP 146/92
[2017-04-01] MEDS: LISINOPRIL 10 MG TABLET PO SCH (21:22)
[2017-04-01] MEDS: DULOXETINE 30 MG CAPSULE.DR PO SCH (21:22)
[2017-04-01] MEDS: QUETIAPINE 100MG TABLET PO SCH (21:22)
[2017-04-01] MEDS: TRAZODONE 100MG TABLET PO SCH (21:23)
[2017-04-01] MEDS: INSULIN DETEMIR 100 UNITS/ML, PEN SQ-INSULIN SCH (21:27)
[2017-04-02 01:50] VITALS: BP 143/87
[2017-04-02 05:32] LABS: HEMATOCRIT 34.1 % (34.6-47.8); HEMOGLOBIN 11.6 g/dL (11.7-16.4); WHITE BLOOD COUNT 7.7 x10^3/uL (3.4-10)
[2017-04-02 05:40] LABS: BLOOD UREA NITROGEN 15 mg/dL (7-18)
[2017-04-02 06:35] VITALS: BP 149/92
[2017-04-02] MEDS ORDERED: INSULIN DETEMIR 100 UNITS/ML, PEN SQ-INSULIN SCH ×2 (08:30→09:00)
[2017-04-02] MEDS: MAALOX/HYOSCYAMINE/LIDOCAINE 45 ML BTL PO SCH ×2 (08:49→21:59)
[2017-04-02] MEDS: INSULIN ASPART 100 UNITS/ML, PEN SQ-INSULIN SCH ×4 (08:50→22:00)
[2017-04-02] MEDS: PANTOPRAZOLE 20MG TABLET PO SCH (08:50)
[2017-04-02] MEDS: GABAPENTIN 400 MG CAPSULE PO SCH ×2 (08:50→21:58)
[2017-04-02] MEDS: RIVAROXABAN 20 MG TABLET PO SCH (08:50)
[2017-04-02] MEDS: GABAPENTIN 300 MG CAPSULE PO SCH (08:51)
[2017-04-02] MEDS: SODIUM CHLORIDE FLUSH 10ML SYR IVF SCH ×2 (08:51→21:00)
[2017-04-02] MEDS: OXYcodone IR 5MG TABLET PO PRN ×2 (08:51→16:49)
[2017-04-02] MEDS ORDERED: POLYETHYLENE GLYCOL 17 GM PACKET ONE (12:21)
[2017-04-02] MEDS ORDERED: POLYETHYLENE GLYCOL 17 GM PACKET PO PRN (12:30)
[2017-04-02 12:55] VITALS: BP 129/87
[2017-04-02] MEDS ORDERED: BISACODYL 10 MG SUPP PR PRN (17:00)
[2017-04-02 19:30] VITALS: BP 118/81
[2017-04-02] MEDS: DULOXETINE 30 MG CAPSULE.DR PO SCH (21:57)
[2017-04-02] MEDS: QUETIAPINE 100MG TABLET PO SCH (21:58)
[2017-04-02] MEDS: TRAZODONE 100MG TABLET PO SCH (21:58)
[2017-04-02] MEDS: LISINOPRIL 10 MG TABLET PO SCH (21:59)
[2017-04-02] MEDS: INSULIN DETEMIR 100 UNITS/ML, PEN SQ-INSULIN SCH (22:00)
[2017-04-03 03:50] VITALS: BP 115/79
[2017-04-03 05:10] LABS: HEMATOCRIT 34.3 % (34.6-47.8); HEMOGLOBIN 11.5 g/dL (11.7-16.4); WHITE BLOOD COUNT 6.8 x10^3/uL (3.4-10)
[2017-04-03 05:14] LABS: ASPARTATE AMINO TRANSFERASE 112 U/L (15-37); BLOOD UREA NITROGEN 15 mg/dL (7-18)
[2017-04-03] MEDS ORDERED: MAGNESIUM SULFATE PMX 2GM/50ML 50 ML IV ONE (08:30)
[2017-04-03 08:32] VITALS: BP 108/74
[2017-04-03] MEDS: MAALOX/HYOSCYAMINE/LIDOCAINE 45 ML BTL PO SCH (08:50)
[2017-04-03] MEDS: GABAPENTIN 400 MG CAPSULE PO SCH (08:51)
[2017-04-03] MEDS: RIVAROXABAN 20 MG TABLET PO SCH (08:51)
[2017-04-03] MEDS: INSULIN ASPART 100 UNITS/ML, PEN SQ-INSULIN SCH ×2 (08:51→11:00)
[2017-04-03] MEDS: PANTOPRAZOLE 20MG TABLET PO SCH (08:51)
[2017-04-03] MEDS: GABAPENTIN 300 MG CAPSULE PO SCH (08:54)
[2017-04-03] MEDS: SODIUM CHLORIDE FLUSH 10ML SYR IVF SCH (08:57)
[2017-04-03] MEDS ORDERED: INSULIN DETEMIR 100 UNITS/ML, PEN SQ-INSULIN SCH (09:00)
[2017-04-03] MEDS ORDERED: INSU300I SQ-INSULIN (09:49)
== END 2017-04-03 13:18 | disposition home or self-care (01) | DRG 682 ==
LOC: ED 17:27 → SUATTDRO 19:18 → EDIP 19:38 → 4WST 23:10
PROVIDERS: ADMIT Hospitalist; ATTEND Hospitalist
DX: N17.0 Acute kidney failure with tubular necrosis (principal); E11.10 Type 2 diabetes mellitus with ketoacidosis without coma; E11.42 Type 2 diabetes mellitus with diabetic polyneuropathy; E87.1 Hypo-osmolality and hyponatremia; F50.9 Eating disorder, unspecified; E86.0 Dehydration; E87.6 Hypokalemia; F41.1 Generalized anxiety disorder; F43.10 Post-traumatic stress disorder, unspecified; I10 Essential (primary) hypertension; K21.9 Gastro-esophageal reflux disease without esophagitis; F12.90 Cannabis use, unspecified, uncomplicated; F32.9 Major depressive disorder, single episode, unspecified; G89.29 Other chronic pain; R06.82 Tachypnea, not elsewhere classified; K52.9 Noninfective gastroenteritis and colitis, unspecified; Z79.01 Long term (current) use of anticoagulants; Z79.4 Long term (current) use of insulin; Z86.711 Personal history of pulmonary embolism; Z86.718 Personal history of other venous thrombosis and embolism; Z87.891 Personal history of nicotine dependence; Z90.710 Acquired absence of both cervix and uterus; Z90.49 Acquired absence of other specified parts of digestive tract
CPT/HCPCS: 36415; 71010; 76700; 80048; 80053; 81003; 82010; 82040; 82800; 82962; 83036; 83690; 83735; 83880; 84100; 84703; 85025; 93005; J1815; J2405; J3480; J2765; J3475; J7030; J7040

== ENCOUNTER → 2017-04-06 | Outpatient (CLI) | payer MEDICAID ==
[~2017-04-06] MED LIST changes: +INSU300I SQ-INSULIN; +QUET100T4 PO; +RIVA20TA PO
== END | disposition home or self-care (01) ==
LOC: PETCFH 08:15
PROVIDERS: ATTEND Internal Medicine Gastroenterology
DX: K31.84 Gastroparesis (principal); K31.89 Other diseases of stomach and duodenum
CPT/HCPCS: 78264; A9541

== ENCOUNTER 2017-06-12 10:36 | Inpatient (IN) | payer MEDICAID ==
[~2017-06-12] VITALS: Ht 170.2 cm; Wt 98.2 kg
[~2017-06-12 10:36] MED LIST changes: -IBUP200T48 PO; +IBUP200T49 PO
[2017-06-12] MEDS ORDERED: PROCHLORPERAZINE 5 MG/ML, 2ML IVPush ONE (11:00)
[2017-06-12] MEDS ORDERED: MORPHINE SULFATE 4 MG/ML, 1ML IVPush ONE (11:00)
[2017-06-12] MEDS ORDERED: SODIUM CHLORIDE FLUSH 10ML SYR IVF ONE (11:00)
[2017-06-12] MEDS ORDERED: SODIUM CHLORIDE 0.9% 1,000ML IVBOLUS ONE (11:00)
[2017-06-12] MEDS ORDERED: PROCHLORPERAZINE 5 MG/ML, 2ML ONE (11:04)
[2017-06-12] MEDS ORDERED: MORPHINE SULFATE 4 MG/ML, 1ML ONE (11:12)
[2017-06-12 11:27] LABS: MEAN CORPUSCULAR HEMOGLOBIN 30.8 pg (27.0-34.8); MEAN CORPUSCULAR HGB CONC 33.1 g/dL (32.4-35.8); MEAN CORPUSCULAR VOLUME 93.2 fL (80-100); MEAN PLATELET VOLUME 10.6 fL (7.4-10.4); PLATELET COUNT 270 x10^3/uL (130-400); RED BLOOD COUNT 4.93 x10^6/uL (3.82-5.3); RED CELL DISTRIBUTION WIDTH 14.2 % (9.6-15.2)
[2017-06-12 11:36] LABS: PH, VENOUS 7.019 pH (7.320-7.420)
[2017-06-12 11:37] LABS: ALANINE AMINOTRANSFERASE 268 U/L (12-78); ALBUMIN 4.1 g/dL (3.4-5.0); ANION GAP 30 mmol/L (5-15); CALCIUM 8.3 mg/dL (8.5-10.1); CHLORIDE 82 mmol/L (98-107); CREATININE 1.68 mg/dL (0.55-1.02)
[2017-06-12 11:38] LABS: MICROSCOPIC AUTO
[2017-06-12 11:39] LABS: ALKALINE PHOSPHATASE 440 U/L (45-117); BILIRUBIN,TOTAL 0.9 mg/dL (0.2-1.0)
[2017-06-12 11:47] LABS: CULTURE INDICATED? NO
[2017-06-12 11:47] LABS: ACETONE, SERUM Large (80mg/dL) mg/dL (Negative)
[2017-06-12 11:54] LABS: MD YES
[2017-06-12 11:55] LABS: <RBC MORPHOLOGY> NORMAL; BAND#(MANUAL) 1.68 x10^3/uL; BANDS%(MANUAL) 6 % (0-7); LYMPH#(MANUAL) 0.56 x10^3/uL (1-3.4); LYMPHS% (MANUAL) 2 % (22-44); MONOS#(MANUAL) 0.56 x10^3/uL (0.3-2.7); MONOS% (MANUAL) 2 % (2-9); SEGS% (MANUAL) 90 % (42-75)
[2017-06-12 11:56] LABS: <PLATELET ESTIMATE> ADEQUATE; <PLT MORPHOLOGY> NORMAL PLT MORPH; LARGE PLATELETS 1+
[2017-06-12] MEDS ORDERED: POTASSIUM CHLORIDE 40 MEQ in SODIUM CHLORIDE 0.9% 1,000 ML IV ONE (12:13)
[2017-06-12] MEDS ORDERED: REGULAR INSULIN 62.5 UNITS in SODIUM CHLORIDE 0.9% 249.375 ML IV PRN ×2 (12:13→12:26)
[2017-06-12] MEDS ORDERED: PENT100C2 PO (12:42)
[2017-06-12] MEDS ORDERED: AMIT25TA PO (12:42)
[2017-06-12] MEDS ORDERED: POLYETHYLENE GLYCOL 17 GM PACKET PO PRN (13:00)
[2017-06-12] MEDS ORDERED: HEPARIN 5,000 UNITS/ML, 1ML SQ SCH (13:00)
[2017-06-12] MEDS ORDERED: LABETALOL 5MG/ML, 20ML IVPush PRN (13:00)
[2017-06-12] MEDS ORDERED: ACETAMINOPHEN 325 MG TABLET PO PRN (13:00)
[2017-06-12 14:27] VITALS: BP 133/83
[2017-06-12 14:46] VITALS: BP 136/74
[2017-06-12] MEDS: NS + 20MEQ KCL 1,000 ML IV SCH ×2 (14:48→21:14)
[2017-06-12 16:13] LABS: ANION GAP 25 mmol/L (5-15); CALCIUM 7.6 mg/dL (8.5-10.1); CHLORIDE 98 mmol/L (98-107); CREATININE 1.22 mg/dL (0.55-1.02)
[2017-06-12] MEDS: GABAPENTIN 400 MG CAPSULE PO SCH ×2 (17:08→21:15)
[2017-06-12] MEDS: ONDANSETRON 2MG/ML, 2ML IVPush PRN (17:12)
[2017-06-12] MEDS: METOCLOPRAMIDE 10MG TABLET PO SCH ×2 (17:49→21:16)
[2017-06-12 20:30] LABS: ANION GAP 19 mmol/L (5-15); CALCIUM 7.7 mg/dL (8.5-10.1); CHLORIDE 108 mmol/L (98-107); CREATININE 0.97 mg/dL (0.55-1.02)
[2017-06-12] MEDS: AMITRIPTYLINE 25 MG TABLET PO SCH (21:15)
[2017-06-12] MEDS: LISINOPRIL 10 MG TABLET PO SCH (21:15)
[2017-06-12] MEDS: TRAZODONE 150MG TABLET PO SCH (21:15)
[2017-06-12] MEDS: DULOXETINE 30 MG CAPSULE.DR PO SCH (21:15)
[2017-06-12] MEDS: QUETIAPINE 100MG TABLET PO SCH (21:16)
[2017-06-12] MEDS: D5%-0.45NACL+KCL 20MEQ 1,000 ML IV SCH (22:15)
[2017-06-13] MEDS: REGULAR INSULIN 62.5 UNITS in SODIUM CHLORIDE 0.9% 249.375 ML IV PRN ×2 (00:17→12:50)
[2017-06-13 00:49] LABS: ANION GAP 13 mmol/L (5-15); CALCIUM 7.8 mg/dL (8.5-10.1); CHLORIDE 110 mmol/L (98-107); CREATININE 0.99 mg/dL (0.55-1.02)
[2017-06-13] MEDS: NS + 20MEQ KCL 1,000 ML IV SCH (04:18)
[2017-06-13 04:23] LABS: MEAN CORPUSCULAR HEMOGLOBIN 30.6 pg (27.0-34.8); MEAN CORPUSCULAR HGB CONC 34.1 g/dL (32.4-35.8); MEAN CORPUSCULAR VOLUME 89.9 fL (80-100); MEAN PLATELET VOLUME 9.5 fL (7.4-10.4); PLATELET COUNT 197 x10^3/uL (130-400); RED BLOOD COUNT 4.19 x10^6/uL (3.82-5.3); RED CELL DISTRIBUTION WIDTH 14.4 % (9.6-15.2)
[2017-06-13 04:35] LABS: CHLORIDE 113 mmol/L (98-107)
[2017-06-13 04:41] LABS: ALANINE AMINOTRANSFERASE 145 U/L (12-78); ALKALINE PHOSPHATASE 263 U/L (45-117); ANION GAP 11 mmol/L (5-15); BILIRUBIN,TOTAL 0.6 mg/dL (0.2-1.0); CALCIUM 7.3 mg/dL (8.5-10.1); TOTAL PROTEIN 6.1 g/dL (6.4-8.2)
[2017-06-13 05:19] VITALS: BP 100/58
[2017-06-13 05:42] LABS: BASOPHILS % (AUTO) 0 % (0-1); EOSINOPHILS % (AUTO) 0 % (1-7); LYMPHOCYTES % (AUTO) 8 % (22-44); MONOCYTES % (AUTO) 9 % (2-9); NEUTROPHILS % (AUTO) 83 % (42-75)
[2017-06-13 05:43] LABS: BASOPHILS # (AUTO) 0.03 x10^3/uL (0-0.1); LYMPHOCYTES # (AUTO) 1.57 x10^3/uL (1-3.4); MD SCAN; MONOCYTES # (AUTO) 1.62 x10^3/uL (0.2-0.8); NEUTROPHILS # (AUTO) 15.76 x10^3/uL (1.8-6.8)
[2017-06-13] MEDS: D5%-0.45NACL+KCL 20MEQ 1,000 ML IV SCH ×2 (06:12→12:54)
[2017-06-13] MEDS: METOCLOPRAMIDE 10MG TABLET PO SCH ×4 (06:12→20:27)
[2017-06-13] MEDS ORDERED: MAGNESIUM SULFATE PMX 4GM/100M 100 ML IV ONE (07:30)
[2017-06-13] MEDS ORDERED: SODIUM PHOSPHATE 20 MMOL in SODIUM CHLORIDE 0.9% 500 ML IV ONE (07:30)
[2017-06-13] MEDS: ONDANSETRON 2MG/ML, 2ML IVPush PRN ×3 (07:46→20:26)
[2017-06-13] MEDS: GABAPENTIN 400 MG CAPSULE PO SCH ×3 (07:46→20:26)
[2017-06-13] MEDS: PANTOPRAZOLE 20MG TABLET PO SCH (07:46)
[2017-06-13] MEDS: SENNA/DOCUSATE TABLET PO SCH (07:47)
[2017-06-13] MEDS: RIVAROXABAN 20 MG TABLET PO SCH (07:47)
[2017-06-13 08:07] LABS: ANION GAP 16 mmol/L (5-15); CHLORIDE 109 mmol/L (98-107); CREATININE 0.89 mg/dL (0.55-1.02)
[2017-06-13] MEDS: FLUCONAZOLE 200 MG TABLET PO SCH (09:23)
[2017-06-13 11:52] LABS: ANION GAP 12 mmol/L (5-15); CALCIUM 7.6 mg/dL (8.5-10.1); CHLORIDE 110 mmol/L (98-107); CREATININE 0.83 mg/dL (0.55-1.02)
[2017-06-13] MEDS ORDERED: POTASSIUM CHLORIDE 20 MEQ in D5%-0.2% NACL 1,000 ML IV SCH (13:30)
[2017-06-13 16:17] LABS: ANION GAP 12 mmol/L (5-15); CHLORIDE 108 mmol/L (98-107); CREATININE 0.89 mg/dL (0.55-1.02)
[2017-06-13] MEDS: INSULIN GLARGINE 100 UNITS/ML, PEN SQ-INSULIN SCH ×2 (17:44→18:18)
[2017-06-13] MEDS: POTASSIUM CHLORIDE 20 MEQ in SODIUM CHLORIDE 0.45% 1,000 ML IV SCH (17:50)
[2017-06-13] MEDS: QUETIAPINE 100MG TABLET PO SCH (20:26)
[2017-06-13] MEDS: LISINOPRIL 10 MG TABLET PO SCH (20:26)
[2017-06-13] MEDS: DULOXETINE 30 MG CAPSULE.DR PO SCH (20:26)
[2017-06-13] MEDS: AMITRIPTYLINE 25 MG TABLET PO SCH (20:26)
[2017-06-13] MEDS: INSULIN LISPRO 100 UNITS/ML, PEN SQ-INSULIN SCH (20:30)
[2017-06-13] MEDS: TRAZODONE 150MG TABLET PO SCH (21:17)
[2017-06-14] MEDS ORDERED: EPINEPHRINE 1 MG in SODIUM CHLORIDE 0.9% 249 ML IV PRN (00:30)
[2017-06-14] MEDS: POTASSIUM CHLORIDE 20 MEQ in SODIUM CHLORIDE 0.45% 1,000 ML IV SCH ×3 (01:49→23:10)
[2017-06-14 04:00] VITALS: BP 108/53
[2017-06-14 04:56] LABS: BASOPHILS # (AUTO) 0.03 x10^3/uL (0-0.1); BASOPHILS % (AUTO) 0 % (0-1); EOSINOPHILS # (AUTO) 0.01 x10^3/uL (0-0.4); EOSINOPHILS % (AUTO) 0 % (1-7); LYMPHOCYTES # (AUTO) 2.15 x10^3/uL (1-3.4); LYMPHOCYTES % (AUTO) 19 % (22-44); MD NO; MEAN CORPUSCULAR HEMOGLOBIN 30.7 pg (27.0-34.8); MEAN CORPUSCULAR HGB CONC 34.4 g/dL (32.4-35.8); MEAN CORPUSCULAR VOLUME 89.3 fL (80-100); MEAN PLATELET VOLUME 9.5 fL (7.4-10.4); MONOCYTES # (AUTO) 0.85 x10^3/uL (0.2-0.8); MONOCYTES % (AUTO) 8 % (2-9); NEUTROPHILS % (AUTO) 73 % (42-75); PLATELET COUNT 146 x10^3/uL (130-400); RED BLOOD COUNT 3.75 x10^6/uL (3.82-5.3); RED CELL DISTRIBUTION WIDTH 14.6 % (9.6-15.2)
[2017-06-14 05:06] LABS: ALBUMIN 2.6 g/dL (3.4-5.0); ANION GAP 12 mmol/L (5-15); CALCIUM 7.5 mg/dL (8.5-10.1); CHLORIDE 109 mmol/L (98-107)
[2017-06-14 05:10] LABS: ALANINE AMINOTRANSFERASE 92 U/L (12-78); ALKALINE PHOSPHATASE 212 U/L (45-117); BILIRUBIN,TOTAL 0.8 mg/dL (0.2-1.0); CREATININE 0.62 mg/dL (0.55-1.02); TOTAL PROTEIN 5.5 g/dL (6.4-8.2)
[2017-06-14] MEDS: METOCLOPRAMIDE 10MG TABLET PO SCH ×4 (06:15→22:53)
[2017-06-14] MEDS: INSULIN LISPRO 100 UNITS/ML, PEN SQ-INSULIN SCH ×4 (07:59→22:59)
[2017-06-14] MEDS ORDERED: POTASSIUM CHLORIDE 20 MEQ TAB.ER.PRT PO ONE (08:00)
[2017-06-14] MEDS: GABAPENTIN 400 MG CAPSULE PO SCH ×3 (08:00→22:52)
[2017-06-14] MEDS: SENNA/DOCUSATE TABLET PO SCH (08:00)
[2017-06-14] MEDS: INSULIN GLARGINE 100 UNITS/ML, PEN SQ-INSULIN SCH ×2 (08:00→22:59)
[2017-06-14] MEDS: ONDANSETRON 2MG/ML, 2ML IVPush PRN (08:01)
[2017-06-14] MEDS: RIVAROXABAN 20 MG TABLET PO SCH (08:01)
[2017-06-14] MEDS: PANTOPRAZOLE 20MG TABLET PO SCH (08:01)
[2017-06-14] MEDS: FLUCONAZOLE 200 MG TABLET PO SCH (08:01)
[2017-06-14 20:00] VITALS: BP 146/89
[2017-06-14] MEDS ORDERED: TRAZODONE 100MG TABLET ONE (20:25)
[2017-06-14] MEDS ORDERED: AMITRIPTYLINE 50 MG TABLET ONE (20:25)
[2017-06-14] MEDS: TRAZODONE 150MG TABLET PO SCH (21:00)
[2017-06-14] MEDS: AMITRIPTYLINE 25 MG TABLET PO SCH (21:00)
[2017-06-14] MEDS: DULOXETINE 30 MG CAPSULE.DR PO SCH (22:53)
[2017-06-14] MEDS: LISINOPRIL 10 MG TABLET PO SCH (22:56)
[2017-06-14] MEDS: QUETIAPINE 100MG TABLET PO SCH (22:56)
[2017-06-15 01:15] VITALS: BP 135/84
[2017-06-15 05:56] LABS: BASOPHILS # (AUTO) 0.02 x10^3/uL (0-0.1); BASOPHILS % (AUTO) 0 % (0-1); EOSINOPHILS # (AUTO) 0.07 x10^3/uL (0-0.4); EOSINOPHILS % (AUTO) 1 % (1-7); LYMPHOCYTES # (AUTO) 2.51 x10^3/uL (1-3.4); LYMPHOCYTES % (AUTO) 38 % (22-44); MD NO; MEAN CORPUSCULAR HEMOGLOBIN 30.8 pg (27.0-34.8); MEAN CORPUSCULAR HGB CONC 34.1 g/dL (32.4-35.8); MEAN CORPUSCULAR VOLUME 90.3 fL (80-100); MEAN PLATELET VOLUME 9.7 fL (7.4-10.4); MONOCYTES # (AUTO) 0.54 x10^3/uL (0.2-0.8); MONOCYTES % (AUTO) 8 % (2-9); NEUTROPHILS % (AUTO) 53 % (42-75); PLATELET COUNT 144 x10^3/uL (130-400); RED BLOOD COUNT 3.66 x10^6/uL (3.82-5.3)
[2017-06-15] MEDS: METOCLOPRAMIDE 10MG TABLET PO SCH ×2 (05:57→12:01)
[2017-06-15 06:08] LABS: ANION GAP 9 mmol/L (5-15); CALCIUM 7.7 mg/dL (8.5-10.1); CHLORIDE 108 mmol/L (98-107); CREATININE 0.45 mg/dL (0.55-1.02)
[2017-06-15] MEDS: INSULIN LISPRO 100 UNITS/ML, PEN SQ-INSULIN SCH ×2 (07:33→12:02)
[2017-06-15 07:37] VITALS: BP 114/80
[2017-06-15] MEDS: GABAPENTIN 400 MG CAPSULE PO SCH (08:17)
[2017-06-15] MEDS: POTASSIUM CHLORIDE 20 MEQ in SODIUM CHLORIDE 0.45% 1,000 ML IV SCH (08:17)
[2017-06-15] MEDS: PANTOPRAZOLE 20MG TABLET PO SCH (08:17)
[2017-06-15] MEDS: SENNA/DOCUSATE TABLET PO SCH (08:17)
[2017-06-15] MEDS: RIVAROXABAN 20 MG TABLET PO SCH (08:17)
[2017-06-15] MEDS: INSULIN GLARGINE 100 UNITS/ML, PEN SQ-INSULIN SCH (08:18)
[2017-06-15] MEDS: FLUCONAZOLE 200 MG TABLET PO SCH (08:18)
[2017-06-15 12:26] VITALS: BP 129/89
== END 2017-06-15 15:13 | disposition home or self-care (01) | DRG 637 ==
LOC: ED 11:00 → EDIP 12:25 → CCU 13:43 → 3NE 06-14 18:08 → DCLOUNGE 06-15 15:00
PROVIDERS: ADMIT Internal Medicine; ATTEND Internal Medicine
PROC: 0T9B70Z Drainage of Bladder with Drainage Device, Via Natural or Artificial Opening (ICD-10-PCS; principal; 2017-06-12)
DX: E10.10 Type 1 diabetes mellitus with ketoacidosis without coma (principal); N17.0 Acute kidney failure with tubular necrosis; E87.1 Hypo-osmolality and hyponatremia; K31.84 Gastroparesis; E10.43 Type 1 diabetes mellitus with diabetic autonomic (poly)neuropathy; D72.828 Other elevated white blood cell count; E86.0 Dehydration; F32.9 Major depressive disorder, single episode, unspecified; F41.1 Generalized anxiety disorder; F43.10 Post-traumatic stress disorder, unspecified; I10 Essential (primary) hypertension; K21.9 Gastro-esophageal reflux disease without esophagitis; Z79.4 Long term (current) use of insulin; Z86.59 Personal history of other mental and behavioral disorders; Z86.711 Personal history of pulmonary embolism; Z86.718 Personal history of other venous thrombosis and embolism; Z87.891 Personal history of nicotine dependence; Z90.710 Acquired absence of both cervix and uterus; Z91.14 Patient's other noncompliance with medication regimen; Z91.19 Patient's noncompliance with other medical treatment and regimen; Z90.49 Acquired absence of other specified parts of digestive tract; E10.65 Type 1 diabetes mellitus with hyperglycemia
CPT/HCPCS: 36415; 71045; 80048; 80053; 81001; 82010; 82803; 82947; 82962; 83735; 84100; 85025; 87081; 93005; 96361; 96365; 96368; 96375; J1815; J2405; J3480; J0780; J3475; J7030; J7040; J7050